=== PATIENT | female | born 1975 | race Caucasian/White ===

== ENCOUNTER 2017-11-23 12:07 | Emergency (ER) | payer OTHER ==
[~2017-11-23] VITALS: Ht 165.1 cm; Wt 97.2 kg
[2017-11-23 12:18] VITALS: TEMP 36.7; Ht 165.1 cm; Wt 97.2 kg
[2017-11-23] MEDS ORDERED: LIDODERM (LIDOCAINE) PATCH 5% TD STA (12:52)
[2017-11-23] MEDS ORDERED: KETOROLAC TROMETHAMINE 60 MG/2 ML VIAL IM STA (13:47)
--- NOTE | 2017-11-23 13:53 | DIAGNOSTIC IMAGING REPORT ---
THORACIC SPINE 3 VIEWS ROUTINE HISTORY: 42 years-old Female back pain acute mid thoracic pain without reported trauma COMPARISON: None available TECHNIQUE: 3 views of the thoracic spine FINDINGS: 12 rib bearing thoracic type vertebral segments are present. Convex left curvature of the upper thoracic spine centered at T4 is noted measuring approximately 14 degrees measured at T2-T6. Mild multilevel spondylitic spurring without acute fracture or subluxation. No significant intervertebral disc space narrowing. Imaged lung mora appear clear. IMPRESSION: 1. No acute fracture or subluxation. 2. 14 degrees levoscoliosis of the upper thoracic spine. The above report was generated using voice recognition software. It may contain grammatical, syntax or spelling errors. Electronically signed by: Obed Diaz M.D. 11/23/2017 1:52 PM Dictated Date/Time: 11/23/2017 1:49 PM
--- NOTE | 2017-11-23 14:10 | EMERGENCY ROOM VISIT NOTE ---
ED Visit Note First contact with patient: 12:34 I have personally seen and evaluated the patient with the physician paperhanger assistant. I agree with the diagnostic/management decisions and have personally been involved in these decisions and agree with the diagnosis.
[2017-11-23] MEDS ORDERED: LIDO1PAD2 TD (14:16)
[2017-11-23] MEDS ORDERED: CYCL5TAB PO (14:16)
--- NOTE | 2017-11-23 14:17 | EMERGENCY ROOM VISIT NOTE ---
ED Visit Note First contact with patient: 12:34 CHIEF COMPLAINT: Back pain HISTORY OF PRESENT ILLNESS: This 42-year-old female patient presents to the emergency department, ambulatory, complaining of pain in the mid to upper back which began yesterday. The patient states she moved yesterday from [place] to [place] with her fidavid. 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 She describes pain near her left shoulder blade, and states it worsens with movement. She describes the pain as sharp and rates it 8/10. Patient states she has been taking one ibuprofen every 8-10 hours without relief in her symptoms. The pain was gradual in onset, is now constant and worse with movement. The patient denies any loss of control of their bowel or bladder functions. There has been no leg or arm numbness or weakness, and no change in sensation. No nausea or vomiting or abdominal pain. No chest pain or shortness of breath. The patient has had prior low back injuries. No dysuria or increased urinary frequency. REVIEW OF SYSTEMS: A 10 system review of systems was performed with positives and pertinent negatives listed in the history of present illness. All other systems were reviewed and are negative. ALLERGIES: Protonix MEDICATIONS: Propranolol, prazosin, Zoloft, lithium, trazodone, "allergy medicine", Lyrica PMH: Migraines, chronic bronchitis, bipolar, depression, chronic back pain SOCIAL HISTORY: Patient lives locally with her arturo. She denies drug, alcohol use. She admits to smoking cigarettes daily. PHYSICAL EXAM: VITALS: Vitals are noted on the nurse's note and reviewed by myself. Vital signs stable. GENERAL: This is a 42-year-old white female, in no acute distress, nondiaphoretic, well-developed well-nourished. SKIN: The skin was without rashes, erythema, edema, or bruising. Capillary refill less than 2 seconds. NECK: Supple without nuchal rigidity. No cervical spine tenderness. No paraspinous muscle tenderness. HEART: Regular rate and rhythm without murmurs gallops or rubs. LUNGS: Clear to auscultation bilaterally without wheezes, rales or rhonchi. ABDOMEN: Positive bowel sounds x 4. Normal tympanic percussion. Soft, nontender, without masses or organomegaly. Magana sign negative. No CVA tenderness. MUSCULOSKELETAL: No muscle atrophy, erythema, or edema noted of the back. There is no tenderness over the lumbar spinous processes, just medial to the scapula. There is no tenderness over the paraspinous muscles bilaterally. There is moderate tenderness over the thoracic spine and right-sided paraspinous muscles. There are muscle spasms present. The patient is slow to move around with maximum tenderness with position changes. Negative bilateral straight leg raise test. NEURO: Patient was alert and oriented to person place and time. Normal sensation to light and sharp touch. Deep tendon reflexes 2+ in the upper and lower extremities. Dorsalis pedis pulse 2+ bilaterally. Strength 5/5 and equal in the bilateral lower extremities. RADIOLOGY: [~ rep ct add3]] THORACIC SPINE 3 VIEWS ROUTINE HISTORY: 42 years-old Female back pain acute mid thoracic pain without reported trauma COMPARISON: None available TECHNIQUE: 3 views of the thoracic spine FINDINGS: 12 rib bearing thoracic type vertebral segments are present. Convex left curvature of the upper thoracic spine centered at T4 is noted measuring approximately 14 degrees measured at T2-T6. Mild multilevel spondylitic spurring without acute fracture or subluxation. No significant intervertebral disc space narrowing. Imaged lung mora appear clear. IMPRESSION: 1. No acute fracture or subluxation. 2. 14 degrees levoscoliosis of the upper thoracic spine. The above report was generated using voice recognition software. It may contain grammatical, syntax or spelling errors. Electronically signed by: Obed Diaz M.D. 11/23/2017 1:52 PM Dictated Date/Time: 11/23/2017 1:49 PM EMERGENCY DEPARTMENT COURSE: The patient was seen and evaluated as above. She was given a Lidoderm patch for pain. X-rays performed reviewed by myself and radiologist as above. The patient complained of ongoing pain despite the Lidoderm patch, so she was given an IM injection of Toradol. The patient was reassessed, and I discussed the findings of the x-ray with the patient and her fianc at bedside. I did consult PDMP and noted multiple prescriptions for Lyrica. The patient states she has been on Lyrica for chronic pain. I offered to provide patient with muscle relaxers and Lidoderm patches, but discussed with her that we would not be starting her on any narcotic pain medication. Patient verbalized agreement and understanding. All questions answered patient and her fianc satisfaction. She was encouraged to follow-up outpatient with her PCP and consider ortho-spine consult. Patient was understandable. Discharge instructions reviewed, patient was discharged home in good condition. I attest that I have personally reviewed the patient's current medication list. Patient was found to have normal blood pressure on screening and does not require follow-up. Etiologies such as lumbago, sciatica, cauda equina, epidural abscess, osteomyelitis, fracture, aortic disease, intra-abdominal pathology, metastatic disease, infection, renal colic, gastrointestinal, as well as others were entertained. DIAGNOSIS: Mid back pain The chart was completed utilizing [email or web address] voice recognition software. Grammatical errors, random word insertions, pronoun errors, and incomplete sentences are an occasional consequence of this system due to software limitations, ambient noise, and hardware issues. Any formal questions or concerns about the content, text, or information contained within the body of this dictation should be directly addressed to the provider for clarification. Current/Historical Medications Scheduled PRN Cyclobenzaprine Hcl (Flexeril), 5 MG PO TID PRN for Moderate Pain Lidocaine (Lidocaine), 1 PATCH TD QD PRN for Pain Vital Signs Date Time Temp Pulse Resp B/P (MAP) Pulse Ox O2 Delivery O2 Flow Rate FiO2 11/23/17 14:25 71 20 128/81 100 11/23/17 12:18 36.7 78 20 117/72 98 Room Air Medications Administered Medications (Trade) Dose Ordered Sig/Perri Route Start Time Stop Time Status Last Admin Dose Admin Lidocaine (Lidoderm Patch 5%) 1 patch NOW STAT TD 11/23/17 12:52 11/23/17 12:53 DC 11/23/17 12:52 1 PATCH Ketorolac Tromethamine (Toradol Inj) 60 mg NOW STAT IM 11/23/17 13:47 11/23/17 13:49 DC 11/23/17 13:47 60 MG Departure Information Impression Primary Impression: Back pain Dispostion Home / Self-Care Condition GOOD Prescriptions Lidocaine (LIDOCAINE) 5 % Pad 1 PATCH TD QD Y for Pain, #30 PATCH Prov: Roya Salguero PA-C 11/23/17 Cyclobenzaprine Hcl (FLEXERIL) 5 Mg Tab 5 MG PO TID Y for Moderate Pain, #15 TAB PRN Prov: Roya Salguero PA-C 11/23/17 Referrals José Manuel Taylor M.D. (PCP) Marquis Veloz, DO Patient Instructions ED Neck Back Pain General, My [facility] Additional Instructions You have been treated in the Emergency Department for Back Pain. You have been prescribed Lidoderm patches. The current patch must be removed within 12 hours. You may not apply a new patch until 12 hours later. No more than 1 patch in 24 hours. You have been prescribed Flexeril (cyclobenzaprine) 1 tabs orally, three times per day. Take your first dose at bedtime as it can make you drowsy. Always take all medications as prescribed. For pain control, you can use the following [id number] medicines (if >12 yo): Ibuprofen(Motrin, Advil) may be used for fever or pain. Use 600mg every six hours as needed. Take with food. Avoid using more than 2400mg in a 24 hour period. Do not use 2400mg per day for more than three consecutive days without physician direction. Prolonged inappropriate use can lead to stomach upset or ulcers. (AND/OR) Acetaminophen(Tylenol) may be used for fever or pain. Use 1000mg every six hours as needed. Avoid using more than 3000mg in a 24 hour period. *Alternate these medications every 3-4 hours for increased pain control. If this is an acute injury, ice can be applied to the area of pain for the first 3 days to help decrease pain and inflammation. After the first 3 days, a heating pad can be used over the area for continued soothing relief. You should schedule a follow-up appointment in 2-3 days with your Primary Care Provider for further evaluation and treatment of your back pain. Return to the Emergency Department if your current symptoms worsen despite treatment course outlined above, or if you develop any of the following symptoms : intractable pain despite aforementioned treatment course, loss of control of your bowel or bladder, numbness or tingling in your groin, or development of a fever. Problem Qualifiers Primary Impression: Back pain Back pain location: thoracic back pain Chronicity: acute Back pain laterality: left Qualified Codes: M54.6 - Pain in thoracic spine
[2017-11-23 14:25] VITALS: BP 128/81; PULSE 71; O2SAT 100
== END 2017-11-23 14:25 | disposition home or self-care (01) ==
LOC: C.EDB 12:09 → C.EDD 14:25
DX: M54.6 Pain in thoracic spine (principal); F31.9 Bipolar disorder, unspecified; Z79.899 Other long term (current) drug therapy; Z88.8 Allergy status to other drugs, medicaments and biological substances; F17.200 Nicotine dependence, unspecified, uncomplicated

== ENCOUNTER 2018-04-10 18:23 | Observation (INO) ==
[2018-04-10] MEDS ORDERED: SODIUM CHLORIDE 0.9% 1000ML 1,000 ML IV SCH (18:45)
--- NOTE | 2018-04-10 18:55 | Emergency Department Note ---
Entered by Dixie Crowe acting as a scribe for History of Present Illness General Chief complaint: Urinary Symptoms Stated complaint: UTI Time Seen by Provider: 04/10/18 18:29 Source: patient History of Present Illness Onset (ago): week(s) 1 Location: left and right (generalized) Pain Consistency: + other (increased) Quality: + other (fatigue) Associated symptoms: + denies other symptoms (diarrhea) and + other (slurred speech, off balance); no cough and no nausea/vomiting The patient is a 42 year old female who presents to the Emergency Room with complaints of increased fatigue that started a week ago. The patient was discharged from the [facility] last week and they changed all of her psych medications. Since the patient has been home, she has had slurred speech, balance issues, cough, and diarrhea. She denies any vomiting. The patient went to [facility] today and she was told she had a UTI and to come to the ED. She reports she is not on any blood thinners. She notes she did not take extra of any of her medications. The patient is a current every day smoker. Home Medications Home Medications Medication Instructions Recorded Confirmed Type clonazepam 0.5 mg PO DAILY PRN 02/10/18 02/27/18 History lithium carbonate 300 mg PO DAILY 02/10/18 02/27/18 History lithium carbonate 600 mg PO HS 02/10/18 02/27/18 History oxcarbazepine 150 mg PO BID 02/10/18 02/27/18 History prazosin 5 mg PO HS 02/10/18 02/27/18 History pregabalin 300 mg PO BID 02/10/18 02/27/18 History propranolol 120 mg PO DAILY 02/10/18 02/27/18 History trazodone 300 mg PO HS 02/10/18 02/27/18 History Allergies Allergy/AdvReac Type Severity Reaction Status Date / Time pantoprazole Allergy Severe Swelling Verified 02/27/18 17:44 of throat lamotrigine AdvReac Mild Rash Unverified 02/27/18 17:44 Past Med/Surg History Medical History AV block Slurred speech Bipolar disorder Migraines Recovering alcoholic Migraine (Inactive) Surgical History H/O lumbosacral spine surgery History of Zack fundoplication Social History Current Living Situation: Significant Other current occupational status: employed 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 and A total of 10 systems reviewed and were otherwise negative Physical Exam Vital Signs Vital Signs - 24 hr 04/10/18 18:25 04/10/18 19:28 04/10/18 19:34 Temperature 36.4 C L Temperature Source Oral Sepsis Recent Fever Within 48 Hours No Sepsis New/Unexplained Change in Mental Status No Sepsis Action Taken by Nursing No Action Required Pulse Rate 76 68 Pulse Rate [Left Finger] 72 Pulse Rhythm Regular Respiratory Rate 16 18 14 Respiratory Effort / Characteristics Non-Labored Spontaneous Blood Pressure 129/79 Blood Pressure [Right Arm] 117/78 Blood Pressure Mean 95 Blood Pressure Mean [Right Arm] 91 Blood Pressure Position Sitting Blood Pressure Position [Right Arm] Sitting Pulse Oximetry 94 97 Oxygen Delivery Method Room Air Room Air GENERAL: Patient is in no acute distress. HEENT: No acute trauma, normocephalic atraumatic, mucous membranes moist, no nasal congestion, no scleral icterus. NECK: No stridor, no adenopathy, no meningismus, trachea is midline. LUNGS: Scattered wheezing, equal breath sounds, no respiratory distress, no rhonchi. HEART: Without murmurs gallops or rubs, regular rate and rhythm. ABDOMEN: Soft, nontender, bowel sounds positive, no hernias, no peritonitis. EXTREMITIES: No cyanosis or edema, full range of motion of all the joints without pain or difficulty, no signs for acute trauma. Boot on left foot and ankle. NEUROLOGIC: Somnolent with some slurred speech but oriented x3. No cerebellar deficits, bilateral subtle upper extremity drift. SKIN: No rash, no jaundice, no diaphoresis. Course 1834: Past medical records reviewed. The patient was evaluated in room A4B, and a complete history and physical examination were performed. 1950: I discussed the patient's case with Dr. Romano, [facility] Hospitalist. She will evaluate the patient for further management and care. 1954: I updated the patient on results and treatment plan at this time. Consultations Consultation #1: I discussed the patient's case with Dr. Romano, [facility] Hospitalist. She will evaluate the patient for further management and care. Time: 19:51 Administered Medications Discontinued Medications Sodium Chloride (Nss 1000ml) 1,000 mls @ 999 mls/hr IV .[id number] MARCY Stop: 04/10/18 19:45 Last Admin: 04/10/18 19:36 Dose: 999 mls/hr Medical Decision Making Differential Diagnosis Differential includes: medication reaction, UTI, dehydration, electrolyte imbalance, anemia, stroke, intracranial bleeding. Medical Records Attestation: I reviewed the patient's medical records. Home Medications Current Medication List: was personally reviewed by me Laboratory Data Attestation: I reviewed the patient's lab results. Result diagrams: 04/10/18 18:55 04/10/18 18:55 Lab Results 04/10/18 04/10/18 04/10/18 Range/Units 18:55 18:55 18:55 WBC 4.17 L (4.8-10.8) K/uL RBC 4.00 L (4.2-5.4) M/uL Hgb 13.0 (12.0-16.0) g/dL Hct 39.1 (37-47) % MCV 97.8 (80-100) fL MCH 32.5 (25-34) pg MCHC 33.2 (32-36) g/dL RDW Std Deviation 43.8 (36.4-46.3) fL RDW Coeff of Georgette 12.3 (11.5-14.5) % Plt Count 148 (130-400) K/uL MPV 10.7 H (7.4-10.4) fL Immature Gran % (Auto) 0.7 % Neut % (Auto) 54.0 % Lymph % (Auto) 19.9 % Gove % (Auto) 20.1 % Eos % (Auto) 4.8 % Baso % (Auto) 0.5 % Immature Gran # (Auto) 0.03 H (0.00-0.02) K/uL Neut # (Auto) 2.25 (1.4-6.5) K/uL Lymph # (Auto) 0.83 L (1.2-3.4) K/uL Gove # (Auto) 0.84 H (0.11-0.59) K/uL Eos # (Auto) 0.20 (0-0.5) K/uL Baso # (Auto) 0.02 (0-0.2) K/uL Sodium 142 (136-145) mmol/L Potassium 3.6 (3.5-5.1) mmol/L Chloride 105 (98-107) mmol/L Carbon Dioxide 34 H (21-32) mmol/L Anion Gap 3.0 (3-11) BUN 9 (7-18) mg/dl Creatinine 0.93 (0.6-1.2) mg/dl Est Cr Clr Drug Dosing 88.5 ml/min Est GFR ( Amer) 86.6 Est GFR (Non-Af Amer) 74.7 BUN/Creatinine Ratio 9.1 L (10-20) Glucose 124 H (70-99) mg/dl Calcium 8.4 L (8.5-10.1) mg/dl Magnesium 2.0 (1.8-2.4) mg/dl Total Bilirubin 0.3 (0.1-1) mg/dl AST 25 (15-37) U/L ALT 38 (12-78) U/L Alkaline Phosphatase 75 (45-117) U/L Troponin I < 0.015 (0-0.045) ng/ml Total Protein 6.8 (6.4-8.2) gm/dl Albumin 3.4 (3.4-5.0) gm/dl Globulin 3.4 (2.5-4.0) gm/dl Albumin/Globulin Ratio 1.0 (0.9-2) TSH 1.200 (0.300-4.500) uIu/ml HCG, Qual (Negative) Urine Color Urine Appearance (Clear) Urine pH (4.5-7.5) Ur Specific Lund (1.000-1.030) Urine Protein (Negative) Urine Glucose (UA) (Negative) Urine Ketones (Negative) Urine Blood (Negative) Urine Nitrite (Negative) Urine Bilirubin (Negative) Urine Urobilinogen (Negative) Ur Leukocyte Esterase (Negative) Urine WBC (Auto) (0-5) /hpf Urine RBC (Auto) (0-4) /hpf U Hyaline Cast (Auto) (0-5) /lpf U Epithel Cells (Auto) (0-5) /lpf Urine Bacteria (Auto) (Negative) Calcium Oxalate Crystal (None Prsent) Urine Opiates Screen (Neg) Ur Methadone, Qual (Neg) Urine Barbiturates (Neg) Valproic Acid 112 H (50-100) mcg/ml Ur Phencyclidine (PCP) (Neg) U Amphetamin/Meth Scrn (Neg) MDMA (Ecstasy) Screen (Neg) U Benzodiazepines Scrn (Neg) Ur Cocaine Metabolite (Neg) U Marijuana (THC) Screen (Neg) Ethyl Alcohol mg/dL (0-3) mg/dl 04/10/18 04/10/18 04/10/18 Range/Units 18:55 18:57 19:10 WBC (4.8-10.8) K/uL RBC (4.2-5.4) M/uL Hgb (12.0-16.0) g/dL Hct (37-47) % MCV (80-100) fL MCH (25-34) pg MCHC (32-36) g/dL RDW Std Deviation (36.4-46.3) fL RDW Coeff of Georgette (11.5-14.5) % Plt Count (130-400) K/uL MPV (7.4-10.4) fL Immature Gran % (Auto) % Neut % (Auto) % Lymph % (Auto) % Gove % (Auto) % Eos % (Auto) % Baso % (Auto) % Immature Gran # (Auto) (0.00-0.02) K/uL Neut # (Auto) (1.4-6.5) K/uL Lymph # (Auto) (1.2-3.4) K/uL Gove # (Auto) (0.11-0.59) K/uL Eos # (Auto) (0-0.5) K/uL Baso # (Auto) (0-0.2) K/uL Sodium (136-145) mmol/L Potassium (3.5-5.1) mmol/L Chloride (98-107) mmol/L Carbon Dioxide (21-32) mmol/L Anion Gap (3-11) BUN (7-18) mg/dl Creatinine (0.6-1.2) mg/dl Est Cr Clr Drug Dosing ml/min Est GFR ( Amer) Est GFR (Non-Af Amer) BUN/Creatinine Ratio (10-20) Glucose (70-99) mg/dl Calcium (8.5-10.1) mg/dl Magnesium (1.8-2.4) mg/dl Total Bilirubin (0.1-1) mg/dl AST (15-37) U/L ALT (12-78) U/L Alkaline Phosphatase (45-117) U/L Troponin I (0-0.045) ng/ml Total Protein (6.4-8.2) gm/dl Albumin (3.4-5.0) gm/dl Globulin (2.5-4.0) gm/dl Albumin/Globulin Ratio (0.9-2) TSH (0.300-4.500) uIu/ml HCG, Qual Negative (Negative) Urine Color Urine Appearance (Clear) Urine pH (4.5-7.5) Ur Specific Lund (1.000-1.030) Urine Protein (Negative) Urine Glucose (UA) (Negative) Urine Ketones (Negative) Urine Blood (Negative) Urine Nitrite (Negative) Urine Bilirubin (Negative) Urine Urobilinogen (Negative) Ur Leukocyte Esterase (Negative) Urine WBC (Auto) (0-5) /hpf Urine RBC (Auto) (0-4) /hpf U Hyaline Cast (Auto) (0-5) /lpf U Epithel Cells (Auto) (0-5) /lpf Urine Bacteria (Auto) (Negative) Calcium Oxalate Crystal (None Prsent) Urine Opiates Screen Neg (Neg) Ur Methadone, Qual Neg (Neg) Urine Barbiturates Neg (Neg) Valproic Acid (50-100) mcg/ml Ur Phencyclidine (PCP) Neg (Neg) U Amphetamin/Meth Scrn Neg (Neg) MDMA (Ecstasy) Screen Pos H (Neg) U Benzodiazepines Scrn Neg (Neg) Ur Cocaine Metabolite Neg (Neg) U Marijuana (THC) Screen Neg (Neg) Ethyl Alcohol mg/dL < 3.0 (0-3) mg/dl 04/10/18 Range/Units 19:10 WBC (4.8-10.8) K/uL RBC (4.2-5.4) M/uL Hgb (12.0-16.0) g/dL Hct (37-47) % MCV (80-100) fL MCH (25-34) pg MCHC (32-36) g/dL RDW Std Deviation (36.4-46.3) fL RDW Coeff of Georgette (11.5-14.5) % Plt Count (130-400) K/uL MPV (7.4-10.4) fL Immature Gran % (Auto) % Neut % (Auto) % Lymph % (Auto) % Gove % (Auto) % Eos % (Auto) % Baso % (Auto) % Immature Gran # (Auto) (0.00-0.02) K/uL Neut # (Auto) (1.4-6.5) K/uL Lymph # (Auto) (1.2-3.4) K/uL Gove # (Auto) (0.11-0.59) K/uL Eos # (Auto) (0-0.5) K/uL Baso # (Auto) (0-0.2) K/uL Sodium (136-145) mmol/L Potassium (3.5-5.1) mmol/L Chloride (98-107) mmol/L Carbon Dioxide (21-32) mmol/L Anion Gap (3-11) BUN (7-18) mg/dl Creatinine (0.6-1.2) mg/dl Est Cr Clr Drug Dosing ml/min Est GFR ( Amer) Est GFR (Non-Af Amer) BUN/Creatinine Ratio (10-20) Glucose (70-99) mg/dl Calcium (8.5-10.1) mg/dl Magnesium (1.8-2.4) mg/dl Total Bilirubin (0.1-1) mg/dl AST (15-37) U/L ALT (12-78) U/L Alkaline Phosphatase (45-117) U/L Troponin I (0-0.045) ng/ml Total Protein (6.4-8.2) gm/dl Albumin (3.4-5.0) gm/dl Globulin (2.5-4.0) gm/dl Albumin/Globulin Ratio (0.9-2) TSH (0.300-4.500) uIu/ml HCG, Qual (Negative) Urine Color Dark Yellow Urine Appearance Clear (Clear) Urine pH 6.0 (4.5-7.5) Ur Specific Lund 1.037 H (1.000-1.030) Urine Protein Trace H (Negative) Urine Glucose (UA) Negative (Negative) Urine Ketones 1+ H (Negative) Urine Blood Negative (Negative) Urine Nitrite Negative (Negative) Urine Bilirubin Negative (Negative) Urine Urobilinogen Negative (Negative) Ur Leukocyte Esterase Negative (Negative) Urine WBC (Auto) 5-10 H (0-5) /hpf Urine RBC (Auto) 5-10 H (0-4) /hpf U Hyaline Cast (Auto) 10-30 H (0-5) /lpf U Epithel Cells (Auto) >30 H (0-5) /lpf Urine Bacteria (Auto) Negative (Negative) Calcium Oxalate Crystal Present H (None Prsent) Urine Opiates Screen (Neg) Ur Methadone, Qual (Neg) Urine Barbiturates (Neg) Valproic Acid (50-100) mcg/ml Ur Phencyclidine (PCP) (Neg) U Amphetamin/Meth Scrn (Neg) MDMA (Ecstasy) Screen (Neg) U Benzodiazepines Scrn (Neg) Ur Cocaine Metabolite (Neg) U Marijuana (THC) Screen (Neg) Ethyl Alcohol mg/dL (0-3) mg/dl Imaging Data Radiologist's Impression: Radiology results as stated below per my review and the radiologist's interpretation: SINGLE VIEW CHEST CLINICAL HISTORY: Generalized weakness. FINDINGS: An AP, portable, upright chest radiograph is compared to study dated . The examination is degraded by portable technique and patient rotation. The cardiomediastinal silhouette is unremarkable. There is mild bibasilar atelectasis. The lungs and pleural spaces are otherwise clear. No pneumothorax is seen. The bony thorax is grossly intact. IMPRESSION: No active disease in the chest. Electronically signed by: Marc Knutson M.D. 04/10/2018 6:[address] SCAN OF THE BRAIN WITHOUT IV CONTRAST CLINICAL HISTORY: Change in mental status. COMPARISON STUDY: CT of the brain dated 02/10/2018. TECHNIQUE: Unenhanced axial CT scan of the brain is performed from the vertex to the skull base. A dose lowering technique was utilized adhering to the principles of ALARA. The Examination is degraded by streak artifact from metallic hardware. CT DOSE: 1003.44 mGycm FINDINGS: Brain parenchyma: The brain parenchyma is normal in appearance. There is no hemorrhage, mass effect, or evidence of acute territorial ischemia by CT criteria. Khan-white matter differentiation is preserved. No extra-axial fluid collection is seen. Ventricles, sulci, cisterns: Normal in configuration. Intracranial vasculature: The visualized intracranial vasculature at the skull base is normal in appearance. Calvarium: A metallic structure is seen along the right parietal convexity. The calvarium appears intact. Sinuses and mastoids: The visualized paranasal sinuses are clear. The mastoid air cells are well pneumatized. Orbits: The bony orbits are grossly intact. IMPRESSION: No acute intracranial abnormality. Electronically signed by: Marc Knutson M.D. 04/10/2018 7:22 PM ECG Data Attestation: I personally reviewed and interpreted this ECG as follows: Indication: weakness Rate (beats per minute): 70 Rhythm: normal sinus Findings: + other (diffuse non-specific ST change); no ST elevation Comparison ECG Date: from (02/10/18) Change: no significant change Blood Pressure Blood Pressure Findings: Normal blood pressure MDM Narrative There is no leukocytosis or concerning anemia. No significant electrolyte abnormality, kidney failure or hepatitis. The patient appears to be in a euthyroid state. EKG shows a sinus rhythm with some nonspecific change, no acute ischemia. Cardiac enzyme testing x1 is not consistent with acute cardiac injury. testing is negative. Urinalysis shows contamination, no obvious infection. Urine tox shows ecstasy versus contamination from her typical psychiatric meds. Alcohol level was undetectable. Valproic acid level was high at 112. Chest x-ray did not show mediastinal widening, pneumonia or CHF. Brain CT showed no acute bleed or mass-effect. On exam, the patient was not febrile or toxic. There were no focal neurologic deficits. She was somnolent though and had some slurred speech. The patient received IV saline for hydration. She is resting comfortably. I think the patient is overmedicated. I think this explains her change in mental status. She is valproic acid toxic by our testing. A hospital stay is warranted. I did speak to the patient and case management. The on-call hospitalist was consulted. Impression & Plan Change in mental status, Somnolence, Medication reaction, Valproic acid toxicity Discharge Plan Visit Data Chief Complaint: Urinary Symptoms Stated Complaint: UTI ED Provider: Feese,Marc J Discharge Problem: Change in mental status, Somnolence, Medication reaction, Valproic acid toxicity Patient Disposition: Being Evaluated by Hospitalist Forms Stand Alone Forms: My [facility] Prescriptions Prescriptions: No Action oxcarbazepine 150 mg tablet 150 mg PO BID RF: 0 clonazepam 0.5 mg tablet 0.5 mg PO DAILY PRN (Reason: Anxiety) RF: 0 prazosin 5 mg capsule 5 mg PO HS RF: 0 lithium carbonate 600 mg capsule 600 mg PO HS RF: 0 lithium carbonate 300 mg capsule 300 mg PO DAILY RF: 0 trazodone 300 mg tablet 300 mg PO HS RF: 0 propranolol 120 mg Capsule,Extended Release 24 Hr 120 mg PO DAILY RF: 0 pregabalin 300 mg capsule 300 mg PO BID RF: 0 Referrals Referrals: Raul Pham MD [Primary Care Provider] - The tariqibe's documentation has been prepared under my direction and personally reviewed by me in its entirety. I confirm that the note above accurately reflects all work, treatment, procedures, and medical decision making performed by me.
--- NOTE | 2018-04-10 18:57 | XRay Report ---
SINGLE VIEW CHEST CLINICAL HISTORY: Generalized weakness. FINDINGS: An AP, portable, upright chest radiograph is compared to study dated 12/22/2017. The examina tion is degraded by portable technique and patient rotation. The cardiomediastinal silhouette is unr emarkable. There is mild bibasilar atelectasis. The lungs and pleural spaces are otherwise clear. No pneumothorax is seen. The bony thorax is grossly intact. IMPRESSION: No active disease in the chest. Electronically signed by: Marc Knutson M.D. 04/10/2018 6:55 PM
[2018-04-10 19:16] LABS: Basophils # (auto) 0.02 K/uL (0-0.2); Basophils % (auto) 0.5 %; Eosinophils % (auto) 4.8 %; Hematocrit (blood only) 39.1 % (37-47); Immature Granulocytes # (auto) 0.03 K/uL (0.00-0.02); Immature Granulocytes % (auto) 0.7 %; Lymphocytes # (auto) 0.83 K/uL (1.2-3.4); Lymphocytes % (auto) 19.9 %; Mean Corpuscular Hgb Conc 33.2 g/dL (32-36); Mean Corpuscular Volume 97.8 fL (80-100); Mean Platelet Volume 10.7 fL (7.4-10.4); Monocytes # (auto) 0.84 K/uL (0.11-0.59); Monocytes % (auto) 20.1 %; Neutrophils # (auto) 2.25 K/uL (1.4-6.5); Platelet Count 148 K/uL (130-400); RDW Coefficient of Variation 12.3 % (11.5-14.5); RDW Standard Deviation 43.8 fL (36.4-46.3); White Blood Count 4.17 K/uL (4.8-10.8)
--- NOTE | 2018-04-10 19:25 | CT Scan Report ---
CT SCAN OF THE BRAIN WITHOUT IV CONTRAST CLINICAL HISTORY: Change in mental status. COMPARISON STUDY: CT of the brain dated 02/10/2018. TECHNIQUE: Unenhanced axial CT scan of the brain is performed from the vertex to the skull base. A d ose lowering technique was utilized adhering to the principles of ALARA. The Examination is degraded by streak artifact from metallic hardware. CT DOSE: 1003.44 mGycm FINDINGS: Brain parenchyma: The brain parenchyma is normal in appearance. There is no hemorrhage, mass effect, or evidence of acute territorial ischemia by CT criteria. Khan-white matter differentiation is preser dulce. No extra-axial fluid collection is seen. Ventricles, sulci, cisterns: Normal in configuration. Intracranial vasculature: The visualized intracranial vasculature at the skull base is normal in appe arance. Calvarium: A metallic structure is seen along the right parietal convexity. The calvarium appears int act. Sinuses and mastoids: The visualized paranasal sinuses are clear. The mastoid air cells are well pneu matized. Orbits: The bony orbits are grossly intact. IMPRESSION: No acute intracranial abnormality. Electronically signed by: Marc Knutson M.D. 04/10/2018 7:22 PM
[2018-04-10 19:30] LABS: Appearance Urine Clear (Clear); Bacteria Urine Automated Negative (Negative); Color Urine Dark Yellow; Epithelial Cell Urine Auto >30 /lpf (0-5); Glucose Urine UA Negative (Negative); Ketones Urine 1+ (Negative); Leukocyte Esterase Urine Negative (Negative); Nitrite Urine Negative (Negative); Protein Urine Trace (Negative); Specific Gravity Urine 1.037 (1.000-1.030); Urobilinogen Urine Negative (Negative)
[2018-04-10 19:35] LABS: Alanine Aminotransferase 38 U/L (12-78); Albumin Level 3.4 gm/dl (3.4-5.0); Aspartate Aminotransferase 25 U/L (15-37); BUN Creatinine Ratio 9.1 (10-20); Blood Urea Nitrogen 9 mg/dl (7-18); Calcium 8.4 mg/dl (8.5-10.1); Carbon Dioxide 34 mmol/L (21-32); Chloride 105 mmol/L (98-107); Creatinine Clr Calc Pharmacy 88.5 ml/min; Est GFR (African American) 86.6; Est GFR (Non-African American) 74.7; Glucose 124 mg/dl (70-99); Potassium 3.6 mmol/L (3.5-5.1); Sodium 142 mmol/L (136-145)
[2018-04-10 19:45] LABS: Bilirubin Urine Negative (Negative); Ictotest Urine Negative (Negative)
[2018-04-10 19:46] LABS: Alkaline Phosphatase 75 U/L (45-117); Bilirubin,Total 0.3 mg/dl (0.1-1); Globulin 3.4 gm/dl (2.5-4.0); Total Protein 6.8 gm/dl (6.4-8.2); Troponin I < 0.015 ng/ml (0-0.045)
[2018-04-10 19:47] LABS: Calcium Oxalate Crystals Urine Present (None Prsent)
[2018-04-10 19:48] LABS: Pregnancy Test, Serum Negative (Negative)
[2018-04-10 20:01] LABS: Amphetamines+Metham, Urine Neg (Neg); Barbiturates, Urine Neg (Neg); Benzodiazepine, Urine Neg (Neg); Cocaine, Urine Neg (Neg); MDMA (Ecstacy), Urine Pos (Neg); Methadone, Urine Neg (Neg); Opiate, Urine Neg (Neg); Phencyclidine, Urine Neg (Neg)
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
[2018-04-10] MEDS ORDERED: guaiFENesin 600 MG TABCR PO PRN (22:39)
[2018-04-10] MEDS ORDERED: LORazepam 0.5 MG TAB PO PRN (22:39)
[2018-04-10] MEDS ORDERED: ACETAMINOPHEN 325 MG TAB PO PRN (22:39)
[2018-04-10] MEDS ORDERED: ALBUT/IPRATROP 3MG/0.5MG NEB 3 ML VIAL NEB PRN (22:39)
[2018-04-10 23:13] LABS: Prothrombin Time 10.1 Seconds (9.0-12.0)
[2018-04-11] MEDS: DULOXETINE HCL 30 MG CAP PO SCH ×3 (01:01→21:16)
[2018-04-11] MEDS: SODIUM CHLORIDE 0.9% 1000ML 1,000 ML IV SCH ×2 (01:02→08:46)
[2018-04-11] MEDS: ENOXAPARIN INJ 40 MG/0.4 ML SYR SQ SCH ×2 (01:03→21:16)
[2018-04-11 06:59] LABS: Basophils # (auto) 0.03 K/uL (0-0.2); Basophils % (auto) 0.6 %; Eosinophils # (auto) 0.21 K/uL (0-0.5); Hematocrit (blood only) 37.2 % (37-47); Hemoglobin 12.5 g/dL (12.0-16.0); Immature Granulocytes # (auto) 0.05 K/uL (0.00-0.02); Immature Granulocytes % (auto) 0.9 %; Lymphocytes # (auto) 1.41 K/uL (1.2-3.4); Lymphocytes % (auto) 26.7 %; Mean Corpuscular Hgb Conc 33.6 g/dL (32-36); Mean Corpuscular Volume 96.1 fL (80-100); Mean Platelet Volume 10.2 fL (7.4-10.4); Monocytes # (auto) 0.97 K/uL (0.11-0.59); Monocytes % (auto) 18.3 %; Neutrophils # (auto) 2.62 K/uL (1.4-6.5); Neutrophils % (auto) 49.5 %; Platelet Count 138 K/uL (130-400); RDW Coefficient of Variation 12.1 % (11.5-14.5); RDW Standard Deviation 42.4 fL (36.4-46.3); Red Blood Count 3.87 M/uL (4.2-5.4); White Blood Count 5.29 K/uL (4.8-10.8)
--- NOTE | 2018-04-11 07:08 | Family Medicine Progress Note ---
Date of Service April 11, 2018 Assessment & Plan (1) Change in mental status: # Change in mental status 2/2 Likely Valproic Acid Level Ms. Howard is a 42-year-old female with a history of bipolar disorder, depression, migraines who presented to [facility] emergency department with a 6 day history of altered mental status. Found to have elevated depakote level in ED. Received 1L NS bolus in ED. CT Head negative. UA is likely a contaminate. - Depakote level downtrending from 125-->74 (normal) and mental status improving. - Continue to hold valproic acid, prazosin, trazodone and Lyrica. Appreciate Psych management for medications. #Cough: -pt w/dry cough & slight wheezing on exam -duonebs prn -mucinex prn -if symptoms worsen, consider repeat CXR as pt is at risk for aspiration pneumonitis #Diarrhea (improving) -Could be related to valproic acid toxicity -Consider testing for C. difficile if her diarrhea worsens #Abnormal UA - Repeat done last evening - with few WBC. check urine culture and follow. #Tobacco abuse: -Nicotine patch ordered -Smoking cessation education #Bipolar disorder: -Hold home Depakote given elevated Depakote level -Psych consult to assist with management #Migraines: -Continue home propanolol #Recovering alcoholic: -Last drink was over 1 year ago -Negative alcohol level on testing #Anxiety: -Continue home Lorazepam as needed #Depression: -Continue home Cymbalta twice daily #Nightmare: -Hold home prazosin given sedating properties # DVT prophylaxis: -Lovenox 40 units subcutaneous daily FEN - Holding IVF because pt tolerating good PO. - K+ 3.3, given 20meq KCL PO, will recheck in AM. - Regular diet. (2) Valproic acid toxicity: (3) Tobacco abuse: (4) Bipolar disorder: (5) Migraines: (6) Recovering alcoholic: (7) Anxiety: (8) Depression: (9) Nightmare: (10) Cough: (11) Diarrhea: (12) DVT prophylaxis: Supervising Physician Co-Signing Physician Notes Resident Physician Supervision Note: I independently interviewed and examined the patient and verified the valdez history and physical, reviewed labs and image studies, discussed the case with the resident Dr. Bojorquez and agree with the findings and care plan. Subjective Pt was seen and examined at bedside. Elsa present in the room. Pt is able to provide a history for me on her own. She states that she is much improved from her admission - boyfriend confirms this. Pt states that she was recently discharged from the [facility] around 1 week ago on Cymbalta and Depakote 1500mg daily. She states that she feels her meds have made her drowsy- it was a constant decline since her visit. She states her double vision has improved. Her Speech is better. Her thinking is back to normal. Pt states she is almost quite back to normal. Just feels fatigued. Constitutional: + fatigue; no fever and no chills Eyes: no diplopia, no discharge, no eye pain and no tunnel vision Ear, Nose, Mouth, Throat: no dizziness Respiratory: + cough; no dyspnea, no dyspnea on exertion, no hemoptysis and no pain with cough Cardiovascular: no chest pain, no dyspnea, no palpitations, no lightheadedness, no syncope and no calf pain Gastrointestinal: no abdominal pain, no nausea, no vomiting and no blood in stools Neurologic: + unsteadiness; no seizure-like activity and no behavioral changes Psychiatric: no behavioral changes, no depression, no suicidal ideation, no homicidal ideation and no substance abuse Physical Exam 2 Vital Signs (Past 24 Hours): Last Vital Signs Temp 36.7 C 04/11/18 05:08 Pulse 65 04/11/18 05:08 Resp 18 04/11/18 05:08 BP 129/84 04/11/18 05:08 Pulse Ox 94 04/11/18 05:08 Constitutional: well developed, well nourished and cooperative Eyes: PERRL and EOM intact bilaterally ENMT: external ear and nose normal, oropharynx normal Respiratory: normal respiratory effort, + cough and able to speak in complete sentences; no respiratory distress, no labored breathing and does not use accessory muscles Auscultation: + wheezes Cardiovascular: RRR, no murmur, no edema Gastrointestinal (Abdomen): normal bowel sounds, soft, nontender, no hepatosplenomegaly Skin: no rashes, warm and dry Neurologic: CN's II-XI intact bilaterally and awake; not confused Speech / Cognition: + abnormal speech (slow to respond, slurred speech) Motor/Sensory : no tremor and normal movement Coordination: normal [id number] test Psychiatric: Orientation: alert and oriented x 3 Suicidal Thoughts: denies suicidal thoughts, denies suicidal plan and denies suicidal intent Insight: good insight _ (1) Bipolar disorder Active/Remission status: remission status unspecified Current bipolar episode type: Current episode severity: Most recent bipolar episode type: Psychotic features: Qualified Code(s): F31.9 - Bipolar disorder, unspecified (2) Migraines Intractability: not intractable Migraine type: unspecified Status migrainosus presence: without status migrainosus Qualified Code(s): G43.909 - Migraine, unspecified, not intractable, without status migrainosus (3) Change in mental status Altered mental status type: unspecified Coma depth: Coma timing: Qualified Code(s): R41.82 - Altered mental status, unspecified (4) Valproic acid toxicity Encounter type: initial encounter Injury intent: accidental or unintentional Qualified Code(s): T42.6X1A - Poisoning by other antiepileptic and sedative- hypnotic drugs, accidental (unintentional), initial encounter
[2018-04-11 07:25] LABS: Albumin Level 2.9 gm/dl (3.4-5.0); BUN Creatinine Ratio 13.5 (10-20); Calcium 7.6 mg/dl (8.5-10.1); Creatinine Clr Calc Pharmacy 126.6 ml/min; Est GFR (African American) 125.1; Potassium 3.3 mmol/L (3.5-5.1)
[2018-04-11 07:28] LABS: Bilirubin,Total 0.4 mg/dl (0.1-1); Globulin 2.8 gm/dl (2.5-4.0); Total Protein 5.7 gm/dl (6.4-8.2)
[2018-04-11] MEDS: CALCIUM CARBONATE 1250MG TAB PO SCH (08:44)
[2018-04-11] MEDS: PROPRANOLOL HCL 60 MG LA CAP PO SCH (08:45)
[2018-04-11] MEDS: NICOTINE 21 MG/24 HR TDSY TD SCH (08:45)
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
[2018-04-11] MEDS ORDERED: POTASSIUM CHLORIDE 20 MEQ TABCR PO STA (13:07)
[2018-04-11] MEDS ORDERED: DIVALPROEX EXTENDED RELEASE 500 MG TAB PO SCH (21:00)
[2018-04-12] MEDS: PROPRANOLOL HCL 60 MG LA CAP PO SCH (08:18)
[2018-04-12] MEDS: DULOXETINE HCL 30 MG CAP PO SCH (08:18)
[2018-04-12] MEDS: NICOTINE 21 MG/24 HR TDSY TD SCH (08:18)
[2018-04-12] MEDS: CALCIUM CARBONATE 1250MG TAB PO SCH (08:18)
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
[2018-04-16 10:04] LABS: MDA negative; MDEA negative; MDMA (Ecstasy) Urine, Confirm negative
== END 2018-04-12 12:04 | disposition home or self-care (01) ==
LOC: 2W 18:23 → ED 18:23 → SUATTDRO 21:55 → 2W 22:26

== ENCOUNTER 2018-11-01 22:59 | Inpatient (IN) ==
[2018-11-01] MEDS ORDERED: ONDANSETRON INJ 2 MG/ML 2 ML VIAL IV STA (23:33)
[2018-11-01] MEDS ORDERED: SODIUM CHLORIDE 0.9% 1000ML 1,000 ML IV SCH (23:45)
[2018-11-02] MEDS: HYDROmorphone INJ 1 MG/ML SYRINGE IV PRN ×6 (00:32→11:09)
[2018-11-02 00:42] LABS: Basophils # (auto) 0.03 K/uL (0-0.2); Basophils % (auto) 0.4 %; Eosinophils # (auto) 0.26 K/uL (0-0.5); Eosinophils % (auto) 3.1 %; Hematocrit (blood only) 41.8 % (37-47); Hemoglobin 14.3 g/dL (12.0-16.0); Immature Granulocytes # (auto) 0.03 K/uL (0.00-0.02); Immature Granulocytes % (auto) 0.4 %; Lymphocytes % (auto) 20.4 %; Mean Corpuscular Hgb Conc 34.2 g/dL (32-36); Mean Corpuscular Volume 93.3 fL (80-100); Mean Platelet Volume 10.9 fL (7.4-10.4); Monocytes # (auto) 0.73 K/uL (0.11-0.59); Monocytes % (auto) 8.8 %; Neutrophils # (auto) 5.57 K/uL (1.4-6.5); Neutrophils % (auto) 66.9 %; Platelet Count 236 K/uL (130-400); RDW Coefficient of Variation 12.9 % (11.5-14.5); RDW Standard Deviation 43.7 fL (36.4-46.3); Red Blood Count 4.48 M/uL (4.2-5.4); White Blood Count 8.32 K/uL (4.8-10.8)
[2018-11-02 00:59] LABS: Alanine Aminotransferase 39 U/L (12-78); Albumin Level 3.8 gm/dl (3.4-5.0); Aspartate Aminotransferase 19 U/L (15-37); BUN Creatinine Ratio 14.1 (10-20); Blood Urea Nitrogen 11 mg/dl (7-18); Calcium 11.1 mg/dl (8.5-10.1); Carbon Dioxide 31 mmol/L (21-32); Chloride 99 mmol/L (98-107); Est GFR (African American) 108.8; Est GFR (Non-African American) 93.9; Glucose 170 mg/dl (70-99); Potassium 3.9 mmol/L (3.5-5.1); Sodium 137 mmol/L (136-145)
[2018-11-02 01:04] LABS: Alkaline Phosphatase 134 U/L (45-117); Bilirubin,Total 0.4 mg/dl (0.2-1); Creatine Kinase 60 U/L (26-192); Creatine Kinase MB < 1.0 ng/ml (0.5-3.6); Globulin 3.7 gm/dl (2.5-4.0); Total Protein 7.5 gm/dl (6.4-8.2); Troponin I < 0.015 ng/ml (0-0.045)
[2018-11-02] MEDS ORDERED: cefOXitin 2,000 MG/60 ML BAG IV STA (01:44)
--- NOTE | 2018-11-02 02:08 | Surgery Consultation ---
Date of Consultation November 02, 2018 Assessment & Plan (1) Acute calculous cholecystitis: 42-year-old female with acute calculus cholecystitis Admit to medicine N.p.o. Plan for laparoscopic cholecystectomy possible cholangiogram later today There is the procedure were discussed to include but not limited to bleeding, infection, retained stone, bile leak, damage surrounding structures including common bile duct, need for future more extensive surgery, conversion open, and the risk of anesthesia Plan of care discussed the patient, all questions were answered, the patient expressed understanding agrees the plan of care as stated Present on Admission?: Yes (2) Bipolar disorder: (3) Recovering alcoholic: History of Present Illness History of Present Illness 42-year-old female presented to the emergency department with abdominal pain starting this morning. She ate eggs for breakfast and developed epigastric and right upper quadrant abdominal pain. She had some nausea. No similar episodes in the past. Denies any jaundice or acholic stool. She has a history of a Zack fundoplication in the past. Allergies Allergy/AdvReac Type Severity Reaction Status Date / Time pantoprazole Allergy Severe Swelling Verified 11/01/18 23:24 of throat lamotrigine AdvReac Mild Rash Verified 11/01/18 23:24 Home Medications Home Medications Medication Instructions Recorded Confirmed Type prazosin 5 mg PO HS 02/10/18 11/01/18 History calcium carbonate [Calcium 500] 1,000 mg PO QAM 04/10/18 11/01/18 History duloxetine [Cymbalta] 30 mg PO BID 04/10/18 11/01/18 History divalproex 1,250 mg PO HS 07/27/18 11/01/18 History acetaminophen [Tylenol Extra 500 mg PO Q6H PRN 10/05/18 11/01/18 History Strength] amitriptyline 25 mg PO HS 10/05/18 11/01/18 History amoxicillin-pot clavulanate 1 tab PO Q12H 10/05/18 11/01/18 History [Augmentin] ferrous sulfate 325 mg PO QAM 10/05/18 11/01/18 History propranolol 120 mg PO QAM 10/05/18 11/01/18 History meclizine 25 mg PO TID PRN #20 tab 10/19/18 11/01/18 Rx ondansetron 4 mg PO Q6H PRN #10 tab 10/19/18 11/01/18 Rx Patient History Medical History AV block Slurred speech Bipolar disorder Migraines Recovering alcoholic Migraine (Inactive) Surgical History H/O lumbosacral spine surgery History of Zack fundoplication Family History Mother Brain tumor Hypertension Breast cancer Father Depression with anxiety Prostate cancer Other No significant family history Social History Preferred Language: [place] Zealander Communication Ability: Impaired Beliefs That Will Affect Care: Restoration Restoration Beliefs: Anabaptist Current Living Situation: Significant Other current occupational status: employed 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, [employer]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 Safe at Home: Yes Smoking Status: Current every day smoker Tobacco Type: cigarettes Cigarettes Per Day: 5 Second Hand Exposure: Yes Hx Alcohol Use: No Hx Substance Use: No Review of Systems Review of Systems: All systems reviewed & are unremarkable except as noted in HPI & below Physical Exam Constitutional: WD/WN, vitals as above + obese Eyes: PERRL, conjunctivae normal, anicteric sclerae ENMT: external ear and nose normal, oropharynx normal Neck: trachea midline, no thyromegaly Respiratory: normal respiratory effort, lungs clear to auscultation Cardiovascular: RRR, no murmur, no edema Gastrointestinal (Abdomen): Inspection/Auscultation: abdomen not distended Percussion/Palpation: + abdomen tender (Tenderness to palpation in the right upper quadrant, positive Magana sign) and abdomen soft; no guarding Musculoskeletal: no cyanosis or clubbing, extremities motor strength 5/5 Skin: no rashes, warm and dry Neurologic: PERRL, EOMI, accommodation nl, no face palsy, no dysarthria Psychiatric: A+Ox3, euthymic affect Lymphatic: no cervical or axillary lymphadenopathy Results & Data Vital Signs (Past 12 Hours) Vital Signs Temp Pulse Pulse Resp BP BP Pulse Ox 11/02/18 00:36 91 H 18 145/100 H 98 11/01/18 23:09 36.9 C 106 H 19 146/88 H 97 Laboratory Results Laboratory Results - last 24 hr 11/02/18 11/02/18 00:25 00:25 WBC 8.32 RBC 4.48 Hgb 14.3 Hct 41.8 MCV 93.3 MCH 31.9 MCHC 34.2 RDW Std Deviation 43.7 RDW Coeff of Georgette 12.9 Plt Count 236 MPV 10.9 H Immature Gran % (Auto) 0.4 Neut % (Auto) 66.9 Lymph % (Auto) 20.4 [place] % (Auto) 8.8 Eos % (Auto) 3.1 Baso % (Auto) 0.4 Immature Gran # (Auto) 0.03 H Neut # (Auto) 5.57 Lymph # (Auto) 1.70 [place] # (Auto) 0.73 H Eos # (Auto) 0.26 Baso # (Auto) 0.03 Sodium 137 Potassium 3.9 Chloride 99 Carbon Dioxide 31 Anion Gap 7.0 BUN 11 Creatinine 0.77 Est Cr Clr Drug Dosing Not Reportable Est GFR ( Amer) 108.8 Est GFR (Non-Af Amer) 93.9 BUN/Creatinine Ratio 14.1 Glucose 170 H Calcium 11.1 H Total Bilirubin 0.4 AST 19 ALT 39 Alkaline Phosphatase 134 H Total Creatine Kinase 60 CK-MB (CK-2) < 1.0 CK/CKMB % Calc TNP Troponin I < 0.015 Total Protein 7.5 Albumin 3.8 Globulin 3.7 Albumin/Globulin Ratio 1.0 Lipase 211 Diagnostic Findings Right upper quadrant ultrasound shows gallstones with normal gallbladder wall and no pericholecystic fluid with positive sonographic Magana sign (1) Bipolar disorder Active/Remission status: remission status unspecified Qualified Code(s): F31.9 - Bipolar disorder, unspecified
[2018-11-02] MEDS ORDERED: IOVERSOL 100ml IV PRN (02:25)
--- NOTE | 2018-11-02 02:48 | History & Physical Report ---
Date of Service November 02, 2018 Assessment & Plan (1) Acute calculous cholecystitis: Admit to medical surgical floor. Zosyn 3.375 mg IV every 8 hours. NPO Except essential medications. Zofran 4 mg IV every 6 hours as needed. Acetaminophen 1 g IV every 8 hours PRN mild pain or temperature. Morphine sulfate 4 mg IV every 3 hours as needed severe pain. NSS + KCl 20 mEq at 100 mils per hour NM HIDA scan EF. Consult general surgery Dr. Mancera. Present on Admission?: Yes (2) Bipolar disorder: Bipolar disorder/anxiety/depression/migraines- Continue divalproex extended release 1250 mg p.o. at bedtime, duloxetine 30 mg p.o. twice daily, Inderal LA 120 mg every morning, and prazosin 5 mg p.o. at bedtime. Present on Admission?: Yes (3) Migraines: See above Present on Admission?: Yes (4) Hypercalcemia: Calcium level was 11.1 upon admission. Repeat after hydration in the a.m. Check vitamin D and parathyroid hormone levels Present on Admission?: Yes (5) Hyperglycemia: Check a hemoglobin A1c Present on Admission?: Yes (6) GERD (gastroesophageal reflux disease): GERD/history of Zack fundoplication- Placed on famotidine 20 mg IV every 12 hours. Present on Admission?: Yes (7) History of Zack fundoplication: See above Present on Admission?: Yes (8) Tobacco abuse: If required, NicoDerm patch. Albuterol-nebulizer every 2 hours as needed. Present on Admission?: Yes (9) Anxiety: See above Present on Admission?: Yes (10) Depression: See above Present on Admission?: Yes History of Present Illness Chief Complaint: The patient presents to the emergency department with a complaint of acute onset of severe right upper quadrant pain, under her right breast, accompanied by nausea without vomiting, that began upon awakening this morning, and has persisted throughout the day. Primary Care Provider: Taiwo Pham MD The patient is a 42-year-old female with a past medical history including anxiety with depression, Zack fundoplication, tobacco abuse, bipolar disorder, and migraines, who presents to the emergency department with acute onset of severe right upper quadrant abdominal pain that has persisted throughout the day. She has not had this pain in the past. It is accompanied by nausea without vomiting. She has not had any questionable food intake. She underwent imaging studies in the emergency department with ultrasound the right upper quadrant showing fatty liver, and suggesting acute cholecystitis, with suggestion of HIDA scan if necessary for confirmation. She reports that her mother did require a cholecystectomy. Patient was seen by Dr. Mancera from general surgery in the emergency department, who has tentative plans for laparoscopic cholecystectomy with possible cholangiogram later on in the day. Allergies Allergy/AdvReac Type Severity Reaction Status Date / Time pantoprazole Allergy Severe Swelling Verified 11/01/18 23:24 of throat lamotrigine AdvReac Mild Rash Verified 11/01/18 23:24 Home Medications Home Medications Medication Instructions Recorded Confirmed Type prazosin 5 mg PO HS 02/10/18 11/01/18 History calcium carbonate [Calcium 500] 1,000 mg PO QAM 04/10/18 11/01/18 History duloxetine [Cymbalta] 30 mg PO BID 04/10/18 11/01/18 History divalproex 1,250 mg PO HS 07/27/18 11/01/18 History acetaminophen [Tylenol Extra 500 mg PO Q6H PRN 10/05/18 11/01/18 History Strength] amitriptyline 25 mg PO HS 10/05/18 11/01/18 History amoxicillin-pot clavulanate 1 tab PO Q12H 10/05/18 11/01/18 History [Augmentin] ferrous sulfate 325 mg PO QAM 10/05/18 11/01/18 History propranolol 120 mg PO QAM 10/05/18 11/01/18 History meclizine 25 mg PO TID PRN #20 tab 10/19/18 11/01/18 Rx ondansetron 4 mg PO Q6H PRN #10 tab 10/19/18 11/01/18 Rx Past Med/Surg History Medical History AV block Slurred speech Bipolar disorder Migraines Recovering alcoholic Migraine (Inactive) Surgical History H/O lumbosacral spine surgery History of Zack fundoplication Family History Mother Brain tumor Hypertension Breast cancer Father Depression with anxiety Prostate cancer Other No significant family history Social History Preferred Language: Latvian Communication Ability: Effective Payroll Examiner Required: No Beliefs That Will Affect Care: None Current Living Situation: Spouse current occupational status: employed 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, [employer]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 Other Information That Helps Us Care for You: Yes (had a fundoplication) Feels Safe at Home: Yes Smoking Status: Current every day smoker Tobacco Type: cigarettes Cigarettes Per Day: 5 Do You Dip or Chew Tobacco: No Second Hand Exposure: No Tobacco Cessation Education Requested by Patient: No Hx Alcohol Use: No Hx Substance Use: No Review of Systems Review of Systems: The patient denies chest pain, palpitations, shortness of breath, dyspnea on exertion, cough, lower extremity swelling, sore throat, fevers, chills, sweats, diarrhea , constipation, blood in urine or stool, dysuria, urinary frequency or urgency, lightheadedness, dizziness, headache, memory loss, loss of consciousness, rash, abnormal bruising or bleeding, imbalance, focal or generalized weakness, numbness or tingling in arms or legs, generalized arthralgias or myalgias, back or neck pain, or night sweats. The review of systems is otherwise negative other than for that already noted above, and at least 10 systems have been reviewed. Physical Exam Physical Exam: The patient is awake, alert and oriented 3, well developed and well nourished, normocephalic and atraumatic, lying in bed and in no acute distress. HEENT--PERRL, EOMI, mucous membranes and oropharynx mildly dry. Neck--supple. No JVD. No bruits. Thyroid normal, trachea midline, no adenopathy. Heart--normal S1 and S2. No murmurs, rubs or gallops. Lungs--clear bilaterally, no respiratory distress, no accessory muscle use. Abdomen--normal bowel sounds and soft. Tender RUQ. Nondistended. Extremities--no cyanosis or clubbing. No edema. There are good distal pulses b/l. Dermatologic--normal skin turgor, normal color, no abnormal lymph nodes, no rash. Neurologic--cranial nerves II through XII grossly intact. Rheumatologic--normal range of motion. Psychiatric--normal affect. Results & Data Vital Signs (Past 12 Hours) Vital Signs Temp Pulse Pulse Resp BP BP Pulse Ox 11/02/18 02:25 96 H 18 136/80 95 11/02/18 00:36 91 H 18 145/100 H 98 11/01/18 23:09 98.4 F 106 H 19 146/88 H 97 Laboratory Results Laboratory Results WBC 8.32 K/uL (4.8-10.8) 11/02/18 00:25 RBC 4.48 M/uL (4.2-5.4) 11/02/18 00:25 Hgb 14.3 g/dL (12.0-16.0) 11/02/18 00:25 Hct 41.8 % (37-47) 11/02/18 00:25 MCV 93.3 fL (80-100) 11/02/18 00:25 MCH 31.9 pg (25-34) 11/02/18 00:25 MCHC 34.2 g/dL (32-36) 11/02/18 00:25 RDW Std Deviation 43.7 fL (36.4-46.3) 11/02/18 00:25 RDW Coeff of Georgette 12.9 % (11.5-14.5) 11/02/18 00:25 Plt Count 236 K/uL (130-400) 11/02/18 00:25 MPV 10.9 fL (7.4-10.4) H 11/02/18 00:25 Immature Gran % (Auto) 0.4 % 11/02/18 00:25 Neut % (Auto) 66.9 % 11/02/18 00:25 Lymph % (Auto) 20.4 % 11/02/18 00:25 [place] % (Auto) 8.8 % 11/02/18 00:25 Eos % (Auto) 3.1 % 11/02/18 00:25 Baso % (Auto) 0.4 % 11/02/18 00:25 Immature Gran # (Auto) 0.03 K/uL (0.00-0.02) H 11/02/18 00:25 Neut # (Auto) 5.57 K/uL (1.4-6.5) 11/02/18 00:25 Lymph # (Auto) 1.70 K/uL (1.2-3.4) 11/02/18 00:25 [place] # (Auto) 0.73 K/uL (0.11-0.59) H 11/02/18 00:25 Eos # (Auto) 0.26 K/uL (0-0.5) 11/02/18 00:25 Baso # (Auto) 0.03 K/uL (0-0.2) 11/02/18 00:25 Sodium 137 mmol/L (136-145) 11/02/18 00:25 Potassium 3.9 mmol/L (3.5-5.1) 11/02/18 00:25 Chloride 99 mmol/L (98-107) 11/02/18 00:25 Carbon Dioxide 31 mmol/L (21-32) 11/02/18 00:25 Anion Gap 7.0 (3-11) 11/02/18 00:25 BUN 11 mg/dl (7-18) 11/02/18 00:25 Creatinine 0.77 mg/dl (0.6-1.2) 11/02/18 00:25 Est Cr Clr Drug Dosing Not Reportable 11/02/18 00:25 Est GFR ( Amer) 108.8 11/02/18 00:25 Est GFR (Non-Af Amer) 93.9 11/02/18 00:25 BUN/Creatinine Ratio 14.1 (10-20) 11/02/18 00:25 Glucose 170 mg/dl (70-99) H 11/02/18 00:25 Calcium 11.1 mg/dl (8.5-10.1) H 11/02/18 00:25 Total Bilirubin 0.4 mg/dl (0.2-1) 11/02/18 00:25 AST 19 U/L (15-37) 11/02/18 00:25 ALT 39 U/L (12-78) 11/02/18 00:25 Alkaline Phosphatase 134 U/L (45-117) H 11/02/18 00:25 Total Creatine Kinase 60 U/L (26-192) 11/02/18 00:25 CK-MB (CK-2) < 1.0 ng/ml (0.5-3.6) 11/02/18 00:25 CK/CKMB % Calc TNP 11/02/18 00:25 Troponin I < 0.015 ng/ml (0-0.045) 11/02/18 00:25 Total Protein 7.5 gm/dl (6.4-8.2) 11/02/18 00:25 Albumin 3.8 gm/dl (3.4-5.0) 11/02/18 00:25 Globulin 3.7 gm/dl (2.5-4.0) 11/02/18 00:25 Albumin/Globulin Ratio 1.0 (0.9-2) 11/02/18 00:25 Lipase 211 U/L (73-393) 11/02/18 00:25 Diagnostic Findings [facility] Patient: ARIS ALEXIS (Female) Age: 42 MR #: [id number] Status: ER Date: 11/02/18 01:15 Slices: 43 History: RUQ PAIN. VOMITING Priors: CT 12/20/17 Tech: Swapna Grace @ [phone] Exams: US RUQ Accession Numbers: [id number] Preliminary Findings Only See Final Report For Complete Findings US RUQ: Hepatic steatosis. The gallbladder is distended containing multiple gallstones. No significant gallbladder wall thickening. No definite pericholecystic fluid. There is focal fatty sparing adjacent to the gallbladder. Positive sonographic Magana sign. Findings could represent acute cholecystitis in the correct clinical setting. Consider HIDA scan for confirmation. No biliary dilatation. No hydronephrosis or nephrolithiasis. Radiologist: Hien Peoples MD Study ready at 01:21 and initial results transmitted at 01:40 *This report constitutes a preliminary interpretation only. Non-acute findings felt to be unrelated to the clinical presentation may not be discussed in this report. The study will be interpreted and a final report will be generated by the local Radiologist the following shift. To reach the hospital radiology department call [phone]. If a discrepancy is found between the preliminary and final interpretations of this study, please notify us via our Client Portal at [email or web address], under [email or web address]. You can also fax this report with a description of the discrepancy, or include the final report, to our daytime fax number [phone]. If faxing, please indicate the severity of discrepancy using one of the following categories: [ ] 1 - Agree/Informational [ ] 2 - Unlikely to Affect Management [ ] 3 - Possible Eventual Change of Management [ ] 4 - Probable Immediate Change of Management For all other patient related information, please fax us at [phone]. [id number] [facility] Patient: ARIS ALEXIS (Female) Age: 42 MR #: [id number] Status: ER Date: 11/02/18 02:24 Slices: [phone] History: RUQ PAIN , Priors: Tech: Josué Vazquez @ [phone] Exams: CT ABDOMEN & PELVIS With Contrast Contrast: Oral - High Density Amt: 30 ML GASTRO, IV Amt: 93 ML OPTIRAY 320 Accession Numbers: [id number] Preliminary Findings Only See Final Report For Complete Findings CT ABDOMEN & PELVIS With Contrast: The gallbladder is distended containing multiple gallstones with gallbladder wall thickening and adjacent edema concerning for acute cholecystitis. No biliary dilatation Hepatic steatosis. Diverticulosis without diverticulitis. Normal appendix. No bowel wall thickening or obstruction. Small hiatal hernia. Expected post operative changes from Zack fundoplication. Radiologist: Hien Peoples MD Study ready at 02:28 and initial results transmitted at 02:51 *This report constitutes a preliminary interpretation only. Non-acute findings felt to be unrelated to the clinical presentation may not be discussed in this report. The study will be interpreted and a final report will be generated by the local Radiologist the following shift. To reach the hospital radiology department call [phone]. If a discrepancy is found between the preliminary and final interpretations of this study, please notify us via our Client Portal at [email or web address], under [email or web address]. You can also fax this report with a description of the discrepancy, or include the final report, to our daytime fax number [phone]. If faxing, please indicate the severity of discrepancy using one of the following categories: [ ] 1 - Agree/Informational [ ] 2 - Unlikely to Affect Management [ ] 3 - Possible Eventual Change of Management [ ] 4 - Probable Immediate Change of Management For all other patient related information, please fax us at [phone]. Code Status & VTE Plan Code Status Full code VTE Prophylaxis Plan VTE Prophylaxis will be ordered: Yes PG Care Time/CCT Total # of Minutes Spent Total Time Spent with Patient: Total time spent is greater than 50% in coordination of care (as documented) at patient's floor/unit and/or counseling patient: (1) Bipolar disorder Active/Remission status: remission status unspecified Qualified Code(s): F31.9 - Bipolar disorder, unspecified (2) Migraines Migraine type: unspecified Status migrainosus presence: without status migrainosus Intractability: not intractable Qualified Code(s): G43.909 - Migraine, unspecified, not intractable, without status migrainosus
[2018-11-02] MEDS ORDERED: PIPERACILL/TAZOBAC CONSULT ACTIVE PRN (03:40)
[2018-11-02] MEDS ORDERED: ONDANSETRON INJ 2 MG/ML 2 ML VIAL IV PRN ×2 (03:40→08:41)
[2018-11-02] MEDS ORDERED: ACETAMINOPHEN 1000 MG/100 ML IV IV PRN (03:40)
[2018-11-02] MEDS: MoRPHine SULFATE 4 MG/ML 1 ML CARP\\VIAL IV PRN ×3 (03:57→15:42)
[2018-11-02] MEDS: NSS + 20MEQ KCL 20 MEQ/1,000 ML BAG IV SCH ×3 (03:57→23:00)
[2018-11-02] MEDS ORDERED: PIPERACILLIN/TAZOBACTAM 4.5 GM in DEXTROSE 5% 100 ML IV ONE (05:00)
[2018-11-02] MEDS ORDERED: ALBUTEROL 0.5% NEB SOLN 2.5 MG/0.5 ML VIAL NEB PRN (05:53)
[2018-11-02] MEDS ORDERED: FAMOTIDINE 20 MG in SYRINGE 3 ML IV SCH (06:00)
--- NOTE | 2018-11-02 06:05 | Emergency Department Note ---
Entered by Frida Hernandez acting as a scribe for Ananda Kenney MD History of Present Illness General Chief complaint: Abdominal Pain Stated complaint: PAIN LOWER CHEST ABOVE STOMACH Time Seen by Provider: 11/01/18 23:11 Source: patient History of Present Illness Provider complaint: abdominal pain Onset (ago): hour(s) greater than 10 Location: abdomen and right Pain Consistency: + intermittent Maximum Pain Intensity: 8 Relieved By: + none Exacerbated By: + movement and + other (deep breaths) Associated symptoms: + denies other symptoms The patient is a 42 y/o female who presents to the emergency department for evaluation of intermittent pain in the right upper quadrant of her abdomen that began 12 hours ago. The patient states that she was eating this morning when the pain began and it persisted throughout the day. She notes the pain is worse with deep breathing. The patient states that the pain has been so intense that she cries and becomes sick to her stomach. The notes the patient has threw up a few times as well today. The patient reports no history of abdominal surgeries. She denies any other symptoms. Home Medications Home Medications Medication Instructions Recorded Confirmed Type prazosin 5 mg PO HS 02/10/18 11/01/18 History calcium carbonate [Calcium 500] 1,000 mg PO QAM 04/10/18 11/01/18 History duloxetine [Cymbalta] 30 mg PO BID 04/10/18 11/01/18 History divalproex 1,250 mg PO HS 07/27/18 11/01/18 History acetaminophen [Tylenol Extra 500 mg PO Q6H PRN 10/05/18 11/01/18 History Strength] amitriptyline 25 mg PO HS 10/05/18 11/01/18 History amoxicillin-pot clavulanate 1 tab PO Q12H 10/05/18 11/01/18 History [Augmentin] ferrous sulfate 325 mg PO QAM 10/05/18 11/01/18 History propranolol 120 mg PO QAM 10/05/18 11/01/18 History meclizine 25 mg PO TID PRN #20 tab 10/19/18 11/01/18 Rx ondansetron 4 mg PO Q6H PRN #10 tab 10/19/18 11/01/18 Rx Allergies Allergy/AdvReac Type Severity Reaction Status Date / Time pantoprazole Allergy Severe Swelling Verified 11/01/18 23:24 of throat lamotrigine AdvReac Mild Rash Verified 11/01/18 23:24 Past Med/Surg History Medical History AV block Slurred speech Bipolar disorder Migraines Recovering alcoholic Migraine (Inactive) Surgical History H/O lumbosacral spine surgery History of Zack fundoplication Family History Mother Brain tumor Hypertension Breast cancer Father Depression with anxiety Prostate cancer Other No significant family history Social History Preferred Language: Armenian Communication Ability: Effective 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 and A total of 10 systems reviewed and were otherwise negative Physical Exam Vital Signs Vital Signs - 24 hr 11/01/18 23:09 11/02/18 00:36 11/02/18 02:25 Temperature 36.9 C Temperature Source Oral Sepsis Recent Fever Within 48 Hours No Sepsis New/Unexplained Change in Mental Status No Sepsis Action Taken by Nursing No Action Required Pulse Rate 106 H Pulse Rate [Apical] 91 H 96 H Respiratory Rate 19 18 18 Respiratory Effort / Characteristics Non-Labored Spontaneous Respiratory Depth Normal Respiratory Pattern Regular Blood Pressure 146/88 H Blood Pressure [Left Arm] 145/100 H 136/80 Blood Pressure Mean 107 Blood Pressure Mean [Left Arm] 115 98 Blood Pressure Position Sitting Pulse Oximetry 97 98 95 Oxygen Delivery Method Room Air Room Air Room Air GENERAL: Awake, alert, well-appearing, in no acute distress HENT: Normocephalic, atraumatic. Oropharynx unremarkable. EYES: Normal conjunctiva. Sclera non-icteric. NECK: Supple. No nuchal rigidity. FROM. No JVD. RESPIRATORY: Clear to auscultation. CARDIAC: Regular rate, normal rhythm. Extremities warm and well perfused. Pulses equal. ABDOMEN: Soft, non-distended. Tenderness to palpation of right upper quadrant. No rebound or guarding. No masses. RECTAL: Deferred. MUSCULOSKELETAL: Chest examination reveals no tenderness. The back is s ymmetrical on inspection without obvious abnormality. There is no CVA tenderness to palpation. No joint edema. LOWER EXTREMITIES: Calves are equal size bilaterally and non-tender. No edema. No discoloration. NEURO: Normal sensorium. No sensory or motor deficits noted. SKIN: No rash or jaundice noted. Course 2329: Past medical records reviewed. The patient was evaluated in room B11. A complete history and physical exam was performed. 0150: I spoke with Dr. David who is at bedside regarding the patient. 0154:I spoke with Dr. Arizmendi hospitalist. He will evaluate for further management. Consultations Consultation #1: I spoke with Dr. David Time: 01:50 Consultation #2: I spoke with Dr. Arizmendi hospitalist Time: 01:54 Administered Medications Potassium Chloride/Sodium Chloride (Normal Saline W/20 Meq Kcl) 20 meq in 1,000 mls @ 100 mls/hr IV .Q10H MARCY Stop: 12/02/18 03:39 Last Admin: 11/02/18 03:57 Dose: 100 mls/hr Documented by: [id number] Ioversol (Optiray 320 100ml) 100 ml IV ONCE PRN PRN Reason: Interaction Checking Stop: 11/06/18 02:24 Last Admin: 11/02/18 02:26 Dose: 93 ml Documented by: [id number] Morphine Sulfate (Morphine Sulfate) 4 mg IV Q3H PRN PRN Reason: Pain Stop: 11/16/18 03:39 Last Admin: 11/02/18 03:57 Dose: 4 mg Documented by: [id number] Discontinued Medications Hydromorphone HCl (Dilaudid) 1 mg IV Q15M PRN PRN Reason: Pain Stop: 11/15/18 23:32 Last Admin: 11/02/18 03:04 Dose: 1 mg Documented by: [id number] Admin: 11/02/18 01:47 Dose: 1 mg Documented by: [id number] Admin: 11/02/18 01:10 Dose: 1 mg Documented by: [id number] Admin: 11/02/18 00:32 Dose: 1 mg Documented by: [id number] Sodium Chloride (Nss 1000ml) 1,000 mls @ 999 mls/hr IV .Q1H1M MARCY Stop: 11/02/18 00:45 Last Admin: 11/02/18 00:32 Dose: 999 mls/hr Documented by: [id number] Cefoxitin Sodium (Mefoxin) 2,000 mg in 60 mls @ 100 mls/hr IV NOW STA Stop: 11/02/18 02:19 Last Admin: 11/02/18 02:53 Dose: 100 mls/hr Documented by: [id number] Piperacillin Sod/Tazobactam (Sod 4.5 gm/ Dextrose) 120 mls @ 200 mls/hr IV NOW ONE; Protocol Stop: 11/02/18 05:35 Last Admin: 11/02/18 05:16 Dose: 200 mls/hr Documented by: [id number] Ondansetron HCl (Zofran) 4 mg IV NOW STA Stop: 11/01/18 23:34 Last Admin: 11/02/18 00:32 Dose: 4 mg Documented by: [id number] Medical Decision Making Differential Diagnosis Differential considered: pancreatitis, hepatitis, or acute cholecystitis, AAA, UTI, pyelonephritis, kidney stones, appendicitis, diverticulitis, shingles, bowel obstruction mesenteric ischemia, intussusception,hernia, testicular torsion, ovarian torsion, ruptured ovarian cyst,ectopic , . Medical Records Attestation: I reviewed the patient's medical records. Home Medications Current Medication List: was personally reviewed by me Laboratory Data Attestation: I reviewed the patient's lab results. Result diagrams: 11/02/18 00:25 11/02/18 00:25 Lab Results 11/02/18 11/02/18 Range/Units 00:25 00:25 WBC 8.32 (4.8-10.8) K/uL RBC 4.48 (4.2-5.4) M/uL Hgb 14.3 (12.0-16.0) g/dL Hct 41.8 (37-47) % MCV 93.3 (80-100) fL MCH 31.9 (25-34) pg MCHC 34.2 (32-36) g/dL RDW Std Deviation 43.7 (36.4-46.3) fL RDW Coeff of Georgette 12.9 (11.5-14.5) % Plt Count 236 (130-400) K/uL MPV 10.9 H (7.4-10.4) fL Immature Gran % (Auto) 0.4 % Neut % (Auto) 66.9 % Lymph % (Auto) 20.4 % [place] % (Auto) 8.8 % Eos % (Auto) 3.1 % Baso % (Auto) 0.4 % Immature Gran # (Auto) 0.03 H (0.00-0.02) K/uL Neut # (Auto) 5.57 (1.4-6.5) K/uL Lymph # (Auto) 1.70 (1.2-3.4) K/uL [place] # (Auto) 0.73 H (0.11-0.59) K/uL Eos # (Auto) 0.26 (0-0.5) K/uL Baso # (Auto) 0.03 (0-0.2) K/uL Sodium 137 (136-145) mmol/L Potassium 3.9 (3.5-5.1) mmol/L Chloride 99 (98-107) mmol/L Carbon Dioxide 31 (21-32) mmol/L Anion Gap 7.0 (3-11) BUN 11 (7-18) mg/dl Creatinine 0.77 (0.6-1.2) mg/dl Est Cr Clr Drug Dosing Not Reportable Est GFR ( Amer) 108.8 Est GFR (Non-Af Amer) 93.9 BUN/Creatinine Ratio 14.1 (10-20) Glucose 170 H (70-99) mg/dl Calcium 11.1 H (8.5-10.1) mg/dl Total Bilirubin 0.4 (0.2-1) mg/dl AST 19 (15-37) U/L ALT 39 (12-78) U/L Alkaline Phosphatase 134 H (45-117) U/L Total Creatine Kinase 60 (26-192) U/L CK-MB (CK-2) < 1.0 (0.5-3.6) ng/ml CK/CKMB % Calc TNP Troponin I < 0.015 (0-0.045) ng/ml Total Protein 7.5 (6.4-8.2) gm/dl Albumin 3.8 (3.4-5.0) gm/dl Globulin 3.7 (2.5-4.0) gm/dl Albumin/Globulin Ratio 1.0 (0.9-2) Lipase 211 (73-393) U/L Imaging Data Attestation: I personally reviewed and interpreted this imaging study as follows: My Impression: Single view chest x-ray interpreted by me, showed no congestion, pneumonia, or pneumothorax. Radiologist's Impression: US RUQ: Hepatic steatosis. The gallbladder is distended containing multiple gallstones. No significant gallbladder wall thickening. No definite pericholecystic fluid. There is focal fatty sparing adjacent to the gallbladder. Positive sonographic Magana sign. Findings could represent acute cholecystitis in the correct clinical setting. Consider HIDA scan for confirmation. No biliary dilatation. No hydronephrosis or nephrolithiasis. CT ABDOMEN & PELVIS With Contrast: The gallbladder is distended containing multiple gallstones with gallbladder wall thickening and adjacent edema concerning for acute cholecystitis. No biliary dilatation Hepatic steatosis. Diverticulosis without diverticulitis. Normal appendix. No bowel wall thickening or obstruction. Small hiatal hernia. Expected post operative changes from Zack fundoplication. ECG Data Attestation: I personally reviewed and interpreted this ECG as follows: Indication: abdominal pain Rate (beats per minute): 88 Rhythm: sinus rhythm Findings: + 1st degree AV block and + T-wave inversion (Anterior); no ST depression and no ST elevation Comparison ECG Date: from (10/19/18) Change: no significant change Blood Pressure Blood Pressure Findings: Elevated blood pressure MDM Narrative This is a 42-year-old female who presents emergency department during a period of high volume and high acuity complaining of right upper quadrant abdominal pain that started when she was eating earlier today. Patient's pain has not been relieved by anything at home. She does have a past medical history of a Zack fundoplication. Due to this and using shared medical decision-making with the patient the decision was made to send patient for an ultrasound as well as a CAT scan the abdomen pelvis. She does not have an elevation in her white blood cell count has a normal liver profile normal kidney profile. Her ultrasound is concerning for acute cholecystitis. Her CAT scan is also concerning for acute cholecystitis. She was started on Mefoxin. She was given Dilaudid for her pain. Repeat examination revealed improvement in the patient's symptoms. I did discuss the case with the surgeon on-call who was kind enough to see the patient. The patient was discussed with the medicine service who agreed to admit the patient. Impression & Plan Abdominal pain, Acute cholecystitis Discharge Plan Visit Data *Final* Discharge Date/Time: 11/02/18 03:15 Chief Complaint: Abdominal Pain Stated Complaint: PAIN LOWER CHEST ABOVE STOMACH ED Provider: Ananda Kenney Discharge Problem: Abdominal pain, Acute cholecystitis Patient Disposition: Admitted As Inpatient Discharge Instructions Interventions: ED Discharge Assessment Last Done: 11/02/18 03:15 Discharge Problem: Abdominal pain Qualifiers: Abdominal location: unspecified location Qualified Code(s): R10.9 - Unspecified abdominal pain The scribe's documentation has been prepared under my direction and personally r eviewed by me in its entirety. I confirm that the note above accurately reflects all work, treatment, procedures, and medical decision making performed by me.
[2018-11-02] MEDS: PATIENT'S HEIGHT AND/OR WEIGHT NEEDED SCH ×2 (06:47→06:48)
--- NOTE | 2018-11-02 07:03 | Ultrasound Report ---
ABDOMINAL ULTRASOUND, RIGHT UPPER QUADRANT HISTORY: Right upper quadrant abdominal pain. COMPARISON: CTA of the abdomen and pelvis December 20, 2017 FINDINGS: Exam is compromised by suboptimal penetration. Increased hepatic echogenicity is consistent with fatty infiltration with suspected sparing within the gallbladder fossa and left hepatic lobe. T here is no biliary ductal dilatation. There are gallstones within the gallbladder. Gallbladder is dis tended. Positive sonographic Magana sign was noted. Gallbladder wall thickness is normal. The pancrea s is largely obscured. There is no right hydronephrosis. IMPRESSION: 1. Cholelithiasis, mild gallbladder distention and positive sonographic Magana sign. These findings f avor acute cholecystitis. 2. No biliary ductal dilatation. 3. Fatty infiltration of the liver with suspected sparing within the left hepatic lobe. Electronically signed by: Anurag Shah M.D. 11/02/2018 7:01 AM
[2018-11-02 07:04] LABS: Estimated Average Glucose 114 mg/dl; Hemoglobin A1C 5.6 % (4.5-5.6)
--- NOTE | 2018-11-02 07:28 | XRay Report ---
XR chest 1V portable HISTORY: Atypical Chest Pain COMPARISON: Chest 04/10/2016. FINDINGS: The lungs are clear. Cardiac silhouette is normal in size. No pleural effusions. No pneumot horax. IMPRESSION: No acute process. Electronically signed by: Patrick Rojas M.D. 11/02/2018 7:26 AM
--- NOTE | 2018-11-02 07:32 | CT Scan Report ---
CT OF THE ABDOMEN AND PELVIS WITH CONTRAST CLINICAL HISTORY: Epigastric pain. History of Zack. COMPARISON STUDY: CTA of the abdomen and pelvis December 20, 2017. Right upper quadrant ultrasound Oct. TECHNIQUE: Following IV administration of 93 mL of Optiray-320, axial images of the abdomen and pelvi s were obtained from the lung bases to the proximal femurs. Images were reviewed in the axial, sagitt al, and coronal planes. IV contrast was administered without complication. Automated exposure contro l was utilized for the study. A dose lowering technique was utilized adhering to the principles of A GILLIAN. CT DOSE: 897.61 mGy.cm FINDINGS: Fatty infiltration of the liver is noted. There are postoperative findings at the gastroeso phageal junction which appear unchanged from prior exam of December 20, 2017. The spleen, adrenal gland s, kidneys and pancreas are normal. There is no hydronephrosis. The gallbladder is mildly distended. There are gallstones within the gallbladder. There is mild gallbladder wall thickening with possible trace pericholecystic infiltration. There is no peripancreatic infiltration. Caliber of the common bi le duct is at the upper limits of normal. There is no evidence for a bowel obstruction. The appendix is normal. There is no lymphadenopathy. There is no ascites. No suspicious osseous lesions are noted. Postoperative findings within the spine are noted. IMPRESSION: 1. Cholelithiasis, mild gallbladder distention and trace pericholecystic infiltration with mild gallb ladder wall thickening. These findings favor acute cholecystitis. A hepatobiliary scan could be obtai loyda if indicated. 2. Fatty liver. Electronically signed by: Anurag Shah M.D. 11/02/2018 7:30 AM
[2018-11-02 08:23] LABS: Pregnancy Test, Serum Negative (Negative)
--- NOTE | 2018-11-02 08:27 | History & Physical Bridge Note ---
Date of Service November 02, 2018 History & Physical Bridge Note I have examined the patient, reviewed the History & Physical and in the interval since the performance of the History & Physical I have noted the following changes of clinical significance: no changes noted
[2018-11-02] MEDS ORDERED: MIDAZOLAM HCL 1 MG/ML 2ML VIAL ONE (08:32)
[2018-11-02] MEDS ORDERED: fentaNYL citrate 100 MCG/2 ML VIAL ONE (08:32)
[2018-11-02] MEDS ORDERED: BUPIVACAINE 0.5 % 5 MG/1 ML MPF 30ML VIAL ONE (08:33)
[2018-11-02] MEDS ORDERED: BUPIVACAINE/EPINEPHRINE 0.5% MPF 1:200,000 30 ML VIAL ONE (08:33)
[2018-11-02] MEDS: DULOXETINE HCL 30 MG CAP PO SCH ×2 (08:35→20:14)
[2018-11-02] MEDS: PROPRANOLOL HCL 60 MG LA CAP PO SCH (08:35)
[2018-11-02] MEDS: PIPERACILLIN/TAZOBACTAM 3.375 GM in DEXTROSE 5% 100 ML IV SCH ×2 (08:36→17:49)
--- NOTE | 2018-11-02 08:37 | Anesthesiology Consultation ---
Date of Service November 02, 2018 Assessment & Plan (1) Encounter for pre-operative examination: Chart Review Chart Review: Acceptable Risk for Surgery and Patient NOT seen in Pre Admission Testing Consults Requested none History Surgery Operation Date: 11/02/18 08:40 Proposed Procedures p Laparoscopic Cholecystectomy - Shon Mancera DO, FACS Height/Weight Height: 5 ft 6 in Weight: 96.9 kg Allergies Allergy/AdvReac Type Severity Reaction Status Date / Time pantoprazole Allergy Severe Swelling Verified 11/01/18 23:24 of throat lamotrigine AdvReac Mild Rash Verified 11/01/18 23:24 Medications Home Medications Medication Instructions Recorded Confirmed Last Taken prazosin 5 mg PO HS 02/10/18 11/01/18 10/18/18 calcium carbonate [Calcium 500] 1,000 mg PO QAM 04/10/18 11/01/18 10/19/18 duloxetine [Cymbalta] 30 mg PO BID 04/10/18 11/01/18 10/19/18 divalproex 1,250 mg PO HS 07/27/18 11/01/18 10/18/18 acetaminophen [Tylenol Extra 500 mg PO Q6H PRN 10/05/18 11/01/18 10/05/18 10:00 Strength] 500mg amitriptyline 25 mg PO HS 10/05/18 11/01/18 10/18/18 amoxicillin-pot clavulanate 1 tab PO Q12H 10/05/18 11/01/18 10/19/18 [Augmentin] ferrous sulfate 325 mg PO QAM 10/05/18 11/01/18 10/19/18 propranolol 120 mg PO QAM 10/05/18 11/01/18 10/19/18 meclizine 25 mg PO TID PRN #20 tab 10/19/18 11/01/18 Unknown ondansetron 4 mg PO Q6H PRN #10 tab 10/19/18 11/01/18 Unknown Active Medications Generic Name Dose Route Start Last Admin Trade Name Freq PRN Reason Stop Dose Admin Duloxetine HCl 30 mg 11/02/18 09:00 11/02/18 08:35 Cymbalta PO 12/02/18 08:59 Not Given BID MARCY Potassium Chloride/Sodium Chloride 20 meq in 1,000 mls @ 100 mls/hr 11/02/18 03:40 07/12/19 03:57 Normal Saline W/20 Meq Kcl IV 12/02/18 03:39 100 mls/hr .Q10H MARCY Administration Piperacillin Sod/Tazobactam 115 mls @ 28.75 mls/hr 11/02/18 10:00 11/02/18 08:36 Sod 3.375 gm/ Dextrose IV 11/12/18 09:59 Not Given Q8H MARCY Famotidine 20 mg/ Syringe 5 mls @ 2.5 mls/min 11/02/18 06:00 11/02/18 06:51 IV 12/02/18 05:59 2.5 mls/min Q12H MARCY Administration Ioversol 100 ml 11/02/18 02:25 11/02/18 02:26 Optiray 320 100ml IV 11/06/18 02:24 93 ml ONCE PRN Administration Interaction Checking Morphine Sulfate 4 mg 11/02/18 03:40 11/02/18 03:57 Morphine Sulfate IV 11/16/18 03:39 4 mg Q3H PRN Administration Pain Propranolol HCl 120 mg 11/02/18 09:00 11/02/18 08:35 Inderal La PO 12/02/18 08:59 Not Given QAM MARCY Past Medical History Medical History 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 degree AV block Slurred speech Bipolar disorder Migraines Recovering alcoholic Migraine (Inactive) Exercise / Class Metabolic Activity II 4-5 Yardwork/Stairs/Walk up hill Past Family History Family History Mother Brain tumor Hypertension Breast cancer Father Depression with anxiety Prostate cancer Other No significant family history Past Surgical History Surgical History H/O lumbosacral spine surgery History of Zack fundoplication Past Anesthesia History No Hx of Anesthesia Complications and No Family Hx of Anesthesia Complications History of PONV No Hx of PONV and No Hx of Motion Sickness Social History Smoking Status: Current every day smoker tobacco type: cigarettes Smoking cigarettes per day: 5 Do You Dip or Chew Tobacco: No Hx Alcohol Use: No Hx Substance Use: No substance use type: does not use Physical Exam Vital Signs Last Vital Signs Temp 37.1 C 11/02/18 07:56 Pulse 95 H 11/02/18 07:56 Resp 19 11/02/18 07:56 BP 128/78 11/02/18 07:56 Pulse Ox 92 11/02/18 07:56 Testing Laboratory Results 11/02/18 00:25 11/02/18 00:25 Hemoglobin A1c 5.6 % (4.5-5.6) 11/02/18 06:21 Electrocardiogram Date: 11/01/18 Findings: + NSR @ (78) Sinus rhythm with 1st degree A-V block Otherwise normal ECG When compared with ECG of 19-OCT-2018 21:03, IN interval has increased T wave inversion less evident in Anterior leads Chest X-Ray Date: 11/02/18 XR chest 1V portable HISTORY: Atypical Chest Pain COMPARISON: Chest 04/10/2016. FINDINGS: The lungs are clear. Cardiac silhouette is normal in size. No pleural effusions. No pneumothorax. IMPRESSION: No acute process.
[2018-11-02] MEDS ORDERED: ATROPINE SULFATE 0.1 MG/ML 10ML SYR IV PRN (08:41)
[2018-11-02] MEDS ORDERED: ePHEDrine sulfate 50 MG/ML AMP IV PRN (08:41)
[2018-11-02] MEDS ORDERED: LIDOCAINE HCL 2% 2 ML VIAL/AMP(20MG/ML) INFIL ONE (09:36)
[2018-11-02] MEDS ORDERED: ROCURONIUM BROMIDE 10 MG/ML 5 ML VIAL ONE (09:36)
[2018-11-02] MEDS ORDERED: ONDANSETRON INJ 2 MG/ML 2 ML VIAL ONE (09:36)
[2018-11-02] MEDS ORDERED: DEXAMETHASONE SOD INJ 4 MG/ML VIAL ONE (09:36)
[2018-11-02] MEDS ORDERED: GLYCOPYRROLATE 0.2 MG/ML VIAL ONE (09:36)
[2018-11-02] MEDS ORDERED: NEOSTIGMINE METHYLSULFATE 5 MG/5 ML SYR ONE (09:36)
[2018-11-02] MEDS ORDERED: PROPOFOL IV EMULSION 10 MG/ML 20 ML VIAL IV ONE (09:36)
[2018-11-02] MEDS ORDERED: LARYING-O-JET KIT (LTA) ONE (09:36)
--- NOTE | 2018-11-02 10:07 | Operative Report ---
Post Operative Report Pre & Post Diagnosis Operation Date: 11/02/18 08:40 Pre-Op Diagnosis: ACUTE CHOLECYSTITIS Post-Op Diagnosis: ACUTE CHOLECYSTITIS Procedure Operation Date: 11/02/18 08:40 Actual Procedures p Laparoscopic Cholecystectomy(Not Applicable) - Shon Mancera DO, LUIS A Surgeon Shon Mancera DO, LUIS A [employer] Farm Manager Kody Perez Estimated Blood Loss 5 Findings Consistent with Post-Op Diagnosis Acute cholecystitis. Critical view of safety obtained. Cystic duct and artery doubly clipped and divided. Specimens Gallbladder Anesthesia Type General Complications none Disposition Accompanied Patient To Recovery: No Disposition: Recovery Room Indications 42-year-old female presented to the emergency department with right upper quadrant abdominal pain and signs symptoms of acute cholecystitis. Plan for laparoscopic cholecystectomy with possible cholangiogram. The risks of the procedure were discussed, all questions were answered, and the patient agreed to proceed with surgery as planned. Description of Procedure The patient was properly identified, consented, and taken to the operating room where she was placed in the supine position. General endotracheal anesthesia was induced. SCDs and a safety belt were placed. Preoperative antibiotics were administered. The patient's abdomen was prepped and draped in the standard sterile fashion. A surgical timeout was performed and all parties were in agreement that this was the correct patient and procedure to be performed and we continued as planned. An incision was made superior and to the left of the umbilicus overlying the rectus muscle and the Veress needle was inserted. Saline drop test confirmed entry into the peritoneum. The abdomen was insufflated with carbon dioxide which the patient tolerated without incident. The abdomen was then entered using the Optiview technique and a 5 mm trocar. The laparoscope was inserted and no damage from initial trocar or Veress needle placement was noted, no gross abnormalities were noted within the 4 quadrants of the abdomen. An 11 mm port was placed in the subxiphoid position and two 5 mm ports were then placed in the right subcostal position. The patient was placed in reverse Trendelenburg position and rotated towards the left. The gallbladder was acutely inflamed. The dome of the gallbladder was retracted towards the left upper quadrant and the infundibulum was retracted toward the right lower quadrant revealing Calot's triangle. Peritoneal attachments were taken down with electrocautery and blunt dissection. The cystic duct and artery were circumferentially dissected. A window of safety was obtained showing the cystic duct entering the gallbladder with no aberrant structures noted. The cys tic duct and artery were doubly clipped and divided. The gallbladder was then lifted off the gallbladder fossa with electrocautery. The gallbladder was placed in an Endo Catch bag and removed through the subxiphoid port site. The right upper quadrant was irrigated and hemostasis was found to be good. 5 mm trochars were removed under direct visualization and the abdomen was allowed to collapse. The subxiphoid port site fascia was closed with 0 Vicryl suture. The wound was irrigated, and the skin of all ports was closed with 4-0 Monocryl subcuticular sutures. Dermabond was placed over the wounds. The patient was extubated in the operating room and taken to the PACU where she recovered without apparent incident. All sponge, instrument and needle counts were correct at the conclusion of the procedure. The patient tolerated the procedure well. The physician's claims assistant was present and scrubbed for the entirety of the case and was essential in positioning the patient, prepping and draping, retraction and exposure, driving the laparoscope, removal of the gallbladder, closure the incisions, and placement of the dressings. I attest to the content of the Intraoperative Record and any orders documented therein. Any exceptions are noted below.
[2018-11-02] MEDS: fentaNYL citrate 100 MCG/2 ML VIAL IV PRN ×4 (10:44→10:59)
--- NOTE | 2018-11-02 11:13 | Anesthesiology Progress Note ---
Date of Service November 02, 2018 Anesthesia Post Procedure Vital Signs Vital Signs: Temp Pulse Pulse Pulse Resp BP BP 11/02/18 11:05 96 H 14 11/02/18 10:55 96 H 14 11/02/18 10:45 92 H 14 11/02/18 10:35 96 H 14 11/02/18 10:25 36 C L 92 H 16 11/02/18 08:44 37 C 92 H 18 11/02/18 07:56 37.1 C 95 H 19 11/02/18 03:30 36.7 C 105 H 20 11/02/18 03:15 100 H 18 116/80 11/02/18 02:25 96 H 18 136/80 11/02/18 00:36 91 H 18 145/100 H 11/01/18 23:09 36.9 C 106 H 19 146/88 H BP Pulse Ox 11/02/18 11:05 148/95 H 96 11/02/18 10:55 127/96 100 11/02/18 10:45 140/117 H 100 11/02/18 10:35 141/100 H 100 11/02/18 10:25 157/103 H 96 11/02/18 08:44 136/76 95 11/02/18 07:56 128/78 92 11/02/18 03:30 132/90 93 11/02/18 03:15 94 11/02/18 02:25 95 11/02/18 00:36 98 11/01/18 23:09 97 Pain Intensity Abdomen: Pain Intensity: 6 Transfer of Care Handoff Completed per policy Notes Mental Status: alert / awake / arousable and participated in evaluation Patient Amnestic to Procedure: Yes Nausea / Vomiting: adequately controlled Pain: adequately controlled Airway Patency, RR, SpO2: stable & adequate BP & HR: stable & adequate Hydration State: stable & adequate Anesthetic Complications: no major complications apparent and Pt Satisfied with anesthetic care
[2018-11-02] MEDS ORDERED: OXYCODONE/ACETAMINOPHEN 5mg/325mg TAB PO PRN (11:52)
[2018-11-02] MEDS: OXYCODONE/ACETAMINOPHEN 10-325 TAB PO PRN ×3 (13:20→22:23)
--- NOTE | 2018-11-02 15:30 | Hospitalist Progress Note ---
Date of Service November 02, 2018 Assessment & Plan (1) Acute calculous cholecystitis: Admit to medical surgical floor. Continue Zosyn Acetaminophen 1 g IV every 8 hours PRN mild pain or temperature. Morphine sulfate 4 mg IV every 3 hours as needed severe pain. NSS + KCl 20 mEq at 100 mils per hour until taking consistent po Consult general surgery Dr. Mancera - s/p cholecystectomy 11/02 (2) Bipolar disorder: Bipolar disorder/anxiety/depression/migraines- Continue divalproex extended release 1250 mg p.o. at bedtime, duloxetine 30 mg p.o. twice daily, Inderal LA 120 mg every morning, and prazosin 5 mg p.o. at bedtime. (3) Migraines: See above (4) Hypercalcemia: Calcium level was 11.1 upon admission - repeat level tomorrow am Check vitamin D Parathyroid hormone level was low (5) Hyperglycemia: A1c 5.6 (6) GERD (gastroesophageal reflux disease): GERD/history of Zack fundoplication- change IV famotidine to po famotidine (7) History of Zack fundoplication: See above (8) Tobacco abuse: If required, NicoDerm patch. Albuterol-nebulizer every 2 hours as needed. (9) Anxiety: See above (10) Depression: See above (11) DVT prophylaxis: SCDs Subjective Post cholecystectomy today. Some abdominal pain but otherwise no complaints. Review of Systems Review of Systems: All systems reviewed & are unremarkable except as noted in HPI & below Physical Exam Physical Exam: General: no distress Eyes: normal inspection, PERLL Respiratory: chest non tender, clear to auscultation, normal breath sounds, no respiratory distress, no accessory muscle use Cardiac: regular rate and rhythm, no rub or gallop, no murmur, no edema, no jvd GI/: hypoactive bowel sounds, abd tenderness to palpation, soft, non distended Extremities: normal range of motion, normal strength, non tender Neuro/Psych: alert and oriented x 3, normal mood and affect Skin: normal color, dry Results & Data Vital Signs (Past 12 Hours) Vital Signs Temp Pulse Pulse Resp BP Pulse Ox 11/02/18 14:54 98 H 18 125/87 92 11/02/18 13:48 36.8 C 102 H 18 151/89 H 93 11/02/18 12:45 37.0 C 97 H 18 137/88 94 11/02/18 12:15 37.0 C 96 H 18 137/94 95 11/02/18 11:45 37.1 C 95 H 16 126/86 95 11/02/18 11:25 37.2 C 93 H 14 119/81 96 11/02/18 11:15 101 H 13 132/92 99 11/02/18 11:05 96 H 14 148/95 H 96 11/02/18 10:55 96 H 14 127/96 100 11/02/18 10:45 92 H 14 140/117 H 100 11/02/18 10:35 96 H 14 141/100 H 100 11/02/18 10:25 36 C L 92 H 16 157/103 H 96 11/02/18 08:44 37 C 92 H 18 136/76 95 11/02/18 07:56 37.1 C 95 H 19 128/78 92 11/02/18 03:30 36.7 C 105 H 20 132/90 93 PG Care Time/CCT Total # of Minutes Spent Total Time Spent with Patient: Total time spent is greater than 50% in coordination of care (as documented) at patient's floor/unit and/or counseling patient: (1) Bipolar disorder Active/Remission status: remission status unspecified Qualified Code(s): F31.9 - Bipolar disorder, unspecified (2) Migraines Migraine type: unspecified Status migrainosus presence: without status migrainosus Intractability: not intractable Qualified Code(s): G43.909 - Migraine, unspecified, not intractable, without status migrainosus
[2018-11-02] MEDS: MoRPHine SULFATE 2 MG/ML CARP IV PRN (19:32)
[2018-11-02] MEDS ORDERED: PRAZOSIN HCL 1 MG CAP PO SCH (21:00)
[2018-11-02] MEDS ORDERED: DIVALPROEX EXTENDED RELEASE 250 MG TABCR PO SCH (21:00)
[2018-11-03] MEDS: MoRPHine SULFATE 2 MG/ML CARP IV PRN ×3 (00:14→07:26)
[2018-11-03] MEDS: PIPERACILLIN/TAZOBACTAM 3.375 GM in DEXTROSE 5% 100 ML IV SCH (03:56)
[2018-11-03] MEDS: DULOXETINE HCL 30 MG CAP PO SCH (07:27)
[2018-11-03] MEDS: PROPRANOLOL HCL 60 MG LA CAP PO SCH (07:27)
--- NOTE | 2018-11-03 08:45 | Hospitalist Progress Note ---
Date of Service November 03, 2018 Assessment & Plan (1) Acute calculous cholecystitis: Admit to medical surgical floor. Continue Zosyn Acetaminophen 1 g IV every 8 hours PRN mild pain or temperature. Morphine sulfate 4 mg IV every 3 hours as needed severe pain. NSS + KCl 20 mEq at 100 mils per hour until taking consistent po Consult general surgery Dr. Mancera - s/p cholecystectomy 11/02 (2) Bipolar disorder: Bipolar disorder/anxiety/depression/migraines- Continue divalproex extended release 1250 mg p.o. at bedtime, duloxetine 30 mg p.o. twice daily, Inderal LA 120 mg every morning, and prazosin 5 mg p.o. at bedtime. (3) Migraines: See above (4) Hypercalcemia: Calcium level was 11.1 upon admission - repeat level tomorrow am Check vitamin D Parathyroid hormone level was low (5) Hyperglycemia: A1c 5.6 (6) GERD (gastroesophageal reflux disease): GERD/history of Zack fundoplication- change IV famotidine to po famotidine (7) History of Zack fundoplication: See above (8) Tobacco abuse: If required, NicoDerm patch. Albuterol-nebulizer every 2 hours as needed. (9) Anxiety: See above (10) Depression: See above (11) DVT prophylaxis: SCDs Results & Data Vital Signs (Past 12 Hours) Vital Signs Temp Pulse Resp BP Pulse Ox 11/03/18 07:13 36.6 C 102 H 15 127/75 95 11/03/18 03:53 37 C 102 H 18 134/74 93 11/02/18 23:10 37 C 104 H 20 121/68 95 PG Care Time/CCT Total # of Minutes Spent Total Time Spent with Patient: Total time spent is greater than 50% in coordination of care (as documented) at patient's floor/unit and/or counseling patient: (1) Bipolar disorder Active/Remission status: remission status unspecified Qualified Code(s): F31.9 - Bipolar disorder, unspecified (2) Migraines Migraine type: unspecified Status migrainosus presence: without status migrainosus Intractability: not intractable Qualified Code(s): G43.909 - Migraine, unspecified, not intractable, without status migrainosus
[2018-11-03] MEDS ORDERED: FAMOTIDINE 20 MG TAB PO SCH (09:00)
[2018-11-03] MEDS: NSS + 20MEQ KCL 20 MEQ/1,000 ML BAG IV SCH (09:12)
--- NOTE | 2018-11-03 09:12 | Surgery Progress Note ---
Date of Service November 03, 2018 Assessment & Plan (1) Acute cholecystitis: POD # 1 lap gavin doing well discharge once pain controlled oral pain meds at home f/u with Dr Mancera 2-3 weeks Present on Admission?: Yes Subjective Doing fairly well pain control is OK with oral pain meds eating well Review of Systems Constitutional: no fever and no chills Respiratory: no cough and no dyspnea Cardiovascular: no chest pain Gastrointestinal: + abdominal pain (mainly around upper incision , moderate); no nausea and no vomiting Musculoskeletal: no back pain Physical Exam Constitutional: well developed and well nourished; no acute distress Respiratory: normal respiratory effort Auscultation: lungs clear to auscultation bilaterally Cardiovascular: Rate/Rhythm: regular rate and regular rhythm Gastrointestinal (Abdomen): Inspection/Auscultation: normal bowel sounds; abdomen not distended Percussion/Palpation: + abdomen tender (mild); no guarding incisions clean and dry Musculoskeletal: Head/Neck/Chest: normocephalic and head atraumatic Skin: no rashes, warm and dry Results & Data Vital Signs (Past 12 Hours) Vital Signs Temp Pulse Resp BP Pulse Ox 11/03/18 07:13 36.6 C 102 H 15 127/75 95 11/03/18 03:53 37 C 102 H 18 134/74 93 11/02/18 23:10 37 C 104 H 20 121/68 95
[2018-11-03] MEDS: OXYCODONE/ACETAMINOPHEN 10-325 TAB PO PRN (09:17)
[2018-11-03 09:35] LABS: Hematocrit (blood only) 35.5 % (37-47); Hemoglobin 12.1 g/dL (12.0-16.0); Mean Corpuscular Hgb Conc 34.1 g/dL (32-36); Mean Corpuscular Volume 92.4 fL (80-100); Mean Platelet Volume 10.3 fL (7.4-10.4); Platelet Count 181 K/uL (130-400); RDW Coefficient of Variation 12.8 % (11.5-14.5); RDW Standard Deviation 43.4 fL (36.4-46.3); Red Blood Count 3.84 M/uL (4.2-5.4); White Blood Count 9.01 K/uL (4.8-10.8)
[2018-11-03 09:42] LABS: BUN Creatinine Ratio 13.4 (10-20); Calcium 8.1 mg/dl (8.5-10.1); Creatinine Clr Calc Pharmacy 140.4 ml/min; Est GFR (African American) 128.5; Est GFR (Non-African American) 110.9; Potassium 4.1 mmol/L (3.5-5.1)
--- NOTE | 2018-11-03 16:32 | Discharge Summary ---
Date of Service November 03, 2018 11/02/18 08:40 OR Room: [facility] Anesthesia Type: General p Laparoscopic Cholecystectomy Surgeon: Shon Mancera Admission HPI Per Admitting Provider The patient is a 42-year-old female with a past medical history including anxiety with depression, Zack fundoplication, tobacco abuse, bipolar disorder, and migraines, who presents to the emergency department with acute onset of severe right upper quadrant abdominal pain that has persisted throughout the day. She has not had this pain in the past. It is accompanied by nausea without vomiting. She has not had any questionable food intake. She underwent imaging studies in the emergency department with ultrasound the right upper quadrant showing fatty liver, and suggesting acute cholecystitis, with suggestion of HIDA scan if necessary for confirmation. She reports that her mother did require a cholecystectomy. Patient was seen by Dr. Mancera from general surgery in the emergency department, who has tentative plans for laparoscopic cholecystectomy with possible cholangiogram later on in the day. Principal Diagnosis Acute cholecystitis status post cholecystectomy Discharge Exam The patient appeared well nourished and normally developed. Vital signs as documented. Head exam is unremarkable. normocephalic, atraumatic Neck is without jugular venous distension, thyromegaly, or lymphademopathy Lungs are clear to auscultation and percussion. Cardiac exam reveals Rhythm is regular. First and second heart sounds normal. Abdominal exam reveals normal bowel sounds, she is soft there is some minor redness around her most superior midline laparoscopic port site but this likely may be irritation as there is Dermabond at that site Extremities are nonedematous and both pedal pulses are present Neurologic exam is A&Ox3, no focal deficits, strength is equal bilateral Psychologically seems neither anxious or depressed Skin is warm Dry except for as mentioned above Discharge Data Allergies Allergy/AdvReac Type Severity Reaction Status Date / Time pantoprazole Allergy Severe Swelling Verified 11/01/18 23:24 of throat lamotrigine AdvReac Mild Rash Verified 11/01/18 23:24 Consultations 11/02/18 01:51 ED Decision to Admit Stat 11/02/18 03:40 Consult Case Management - Discharge Planning Routine Consult General Surgery Routine 11/02/18 04:20 Consult General Surgery Routine Procedures Performed Operation Date: 11/02/18 08:40 Actual Procedures p Laparoscopic Cholecystectomy(Not Applicable) - Shon Mancera, DO, FACS Ordered Studies 11/01/18 23:33 US abdomen limited Urgent 11/02/18 00:33 CT abd pelvis oral and IV con Urgent Hospital Course (1) Acute calculous cholecystitis: Consult general surgery Dr. Mancera - s/p cholecystectomy 11/02, patient doing well discuss with surgery production tool engineer with her to continue antibiotics they said no but does have pain medicine and follow-up with Dr. Mancera as an outpatient. (2) Bipolar disorder: Bipolar disorder/anxiety/depression/migraines-sugars have been stable Continue divalproex extended release 1250 mg p.o. at bedtime, duloxetine 30 mg p.o. twice daily, Inderal LA 120 mg every morning, and prazosin 5 mg p.o. at bedtime. (3) Migraines: See above (4) Hypercalcemia: Calcium is actually low, given the wide discrepancy between the 2 levels would recommend outpatient repeat testing with her primary care provider Parathyroid hormone level was low (5) Hyperglycemia: A1c 5.6 (6) GERD (gastroesophageal reflux disease): GERD/history of Zack fundoplication- Continue outpatient antiacid suppression medications (7) History of Zack fundoplication: See above (8) Tobacco abuse: Smoking cessation counseling given Albuterol-nebulizer every 2 hours as needed. (9) Anxiety: See above (10) Depression: See above Total Time Total Time Spent Total Time Spent (In Minutes): greater than 30 minutes were required to prepare discharge Discharge Plan Discharge Items Patient Disposition: Home - Self-Care Reason For Visit: ACUTE CHOLECYSTITIS Discharge Diagnosis: cholecystitis, acute cholecystectomy Discharge Goals: Decrease discomfort, Diagnostic testing and Improve disease control Activity: Per 'Additional Instructions' section Lifting: No more than 10 pounds Bathing: No limitations Driving/Machine Use: Resume 3 days after discharge Non-emergency contact: Surgeon Call non-emergency contact if: you have any medication questions, your pain is not controlled, you have a fever, your temperature is above 101.5 and your wound has increased redness Follow-up/Referrals: Raul Pham MD [Primary Care Provider] - Shon Mancera DO, FACS [Physician] - (Call to make an appt in 2 weeks) Diet: Regular Addtl Provider Instructions: please follow up with general surgery Post-Surgical ~Discharge Instructions Activity Recommendations: - lifting limitation: (10 pounds for 2 weeks), - exercise/sex/sports limit: (nonstrenuous for 2 weeks), - driving or machine use limit: (none for 1 week), - Shower/bathe limit: (may shower beginning tomorrow) Diet: - Resume previous diet SPECIAL CARE INSTRUCTIONS: - May shower in 24 hours. Let water run over area and pat dry. - Leave steri strips on for one week. - Call the surgeon's office with any questions or concerns - - (ex. temperature higher than 101 degrees F, excessive bleeding or pain). MEDICATIONS: - Resume previous medications unless instructed otherwise by your surgeon. - Ibuprofen 600 mg every 6 hours with food - Percocet 1 every 4 hours, as needed for pain FOLLOW UP VISIT: - If not already scheduled, please call the office to schedule a two week follow-up appointment. Office number Prescriptions: New oxycodone-acetaminophen [Percocet] 5-325 mg tablet 1 - 2 tab PO Q4H PRN (Reason: pain) Qty: 15 RF: 0 Continued calcium carbonate [Calcium 500] 500 mg calcium (1,250 mg) Tablet 1,000 mg PO QAM RF: 0 duloxetine [Cymbalta] 30 mg Capsule,Delayed Release(Dr/Ec) 30 mg PO BID RF: 0 ondansetron 4 mg tablet,disintegrating 4 mg PO Q6H PRN (Reason: nausea and vomiting) Qty: 10 RF: 0 meclizine 25 mg tablet 25 mg PO TID PRN (Reason: dizziness) Qty: 20 RF: 0 prazosin 5 mg capsule 5 mg PO HS RF: 0 divalproex 250 mg tablet extended release 24 hr 1,250 mg PO HS RF: 0 amitriptyline 25 mg tablet 25 mg PO HS RF: 0 ferrous sulfate 325 mg (65 mg iron) Tablet,Delayed Release (Dr/Ec) 325 mg PO QAM RF: 0 propranolol 120 mg capsule,extended release 24 hr 120 mg PO QAM RF: 0 Discontinued acetaminophen [Tylenol Extra Strength] 500 mg Tablet 500 mg PO Q6H PRN (Reason: Pain) RF: 0 amoxicillin-pot clavulanate [Augmentin] 875-125 mg Tablet 1 tab PO Q12H RF: 0 Stand-Alone Forms: Call Back Authorization, [facility] Discharge Orders: Discharge Order (Routine); Ordered 11/03/18 Ordered By: Tyrell Arnold Admission Data Admit Date/Time: 11/02/18 02:46 Attending Provider: Tyrell Arnold Admit Provider: Juliano Araya Primary Care Provider: Raul Pham Other Providers: Shon Mancera ; Juliano Araya Service: Surgical Services Other Interventions: Discharge Summary Assessment (RN) Last Done: 11/03/18 10:54 Pending Studies at Discharge: Yes DC Date/Time DO NOT enter until pt leaves facility: 11/03/18 11:38
[2018-11-07 23:49] LABS: Vitamin D3,1,25 14 pg/mL
== END 2018-11-03 11:38 | disposition home or self-care (01) | DRG 419 ==
LOC: ED 22:59 → SUATTDRO 11-02 02:46 → 3N 11-02 02:46

== ENCOUNTER 2018-12-21 19:46 | Observation (INO) ==
[2018-12-21] MEDS ORDERED: PROCHLORPERAZINE 5 MG/ML 2 ML VIAL IV STA (20:19)
[2018-12-21] MEDS ORDERED: MoRPHine SULFATE 4 MG/ML 1 ML CARP\\VIAL IV STA (20:19)
[2018-12-21] MEDS ORDERED: SODIUM CHLORIDE 0.9% 1000ML 1,000 ML IV SCH (20:30)
[2018-12-21 20:50] LABS: Basophils # (auto) 0.02 K/uL (0-0.2); Basophils % (auto) 0.2 %; Eosinophils # (auto) 0.06 K/uL (0-0.5); Eosinophils % (auto) 0.5 %; Hematocrit (blood only) 37.9 % (37-47); Hemoglobin 13.2 g/dL (12.0-16.0); Immature Granulocytes # (auto) 0.11 K/uL (0.00-0.02); Immature Granulocytes % (auto) 0.8 %; Lymphocytes # (auto) 2.05 K/uL (1.2-3.4); Lymphocytes % (auto) 15.5 %; Mean Corpuscular Hemoglobin 32.7 pg (25-34); Mean Corpuscular Hgb Conc 34.8 g/dL (32-36); Mean Corpuscular Volume 93.8 fL (80-100); Mean Platelet Volume 10.4 fL (7.4-10.4); Monocytes # (auto) 0.78 K/uL (0.11-0.59); Monocytes % (auto) 5.9 %; Neutrophils # (auto) 10.18 K/uL (1.4-6.5); Neutrophils % (auto) 77.1 %; Platelet Count 278 K/uL (130-400); RDW Coefficient of Variation 13.5 % (11.5-14.5); RDW Standard Deviation 46.4 fL (36.4-46.3); Red Blood Count 4.04 M/uL (4.2-5.4)
[2018-12-21 21:04] LABS: Pregnancy Test, Serum Negative (Negative)
[2018-12-21 21:10] LABS: Albumin Level 3.7 gm/dl (3.4-5.0); BUN Creatinine Ratio 14.4 (10-20); Calcium 8.9 mg/dl (8.5-10.1); Creatinine Clr Calc Pharmacy 96.6 ml/min; Est GFR (African American) 93.2; Est GFR (Non-African American) 80.5; Potassium 3.6 mmol/L (3.5-5.1)
[2018-12-21 21:12] LABS: Albumin Globulin Ratio 1.1 (0.9-2); Bilirubin,Total 0.4 mg/dl (0.2-1); Globulin 3.3 gm/dl (2.5-4.0)
[2018-12-21] MEDS ORDERED: KETOROLAC 30 MG/ML VIAL IV ONE (21:14)
[2018-12-21] MEDS ORDERED: DiphenhydrAMINE HCL 50 MG/ML VIAL IV STA (21:14)
--- NOTE | 2018-12-21 23:08 | Emergency Department Note ---
Entered by Matilda Farrar acting as a scribe for Oscar Campbell MD History of Present Illness General Chief complaint: Headache Stated complaint: MIGRAINE Time Seen by Provider: 12/21/18 20:12 Source: patient History of Present Illness Onset (ago): day(s) (2) Location: head Pain Consistency: + other (worsening) Maximum Pain Intensity: 10 Quality: + other (migraine) Associated symptoms: + denies other symptoms (numbness, weakness, urinary symptoms) and + nausea/vomiting (positive nausea, negative vomiting) The patient is a 43 year old female who presents to the Emergency Room with complaints of a worsening migraine beginning two days ago. The patient states she has a significant history of migraines and has been in the ER twice this week already for migraines. The patient reports that she is given medication whi le in the hospital lowering her pain to a 2/10, but the pain returns as soon as the medication wears off. She notes that the pain starts behind her eyes and radiates to the back of her head. The patient notes that she has nausea, but no vomiting. She denies any numbness, weakness, urinary symptoms, and the chance of . She states that her triggers include lack of sleep and certain smells. The patient states that she has been taking propanol and Maxalt for many years, but it no longer provides any pain relief. She states that she has been having frequent migraines for the past several months, but this week is the worst that it has ever been. She notes that she has only been sleeping 3 to 4 hours per night. She reports that she saw Dr. Taylor yesterday and was given prednisone which she has been taking, but it has not helped with pain relief. Home Medications Home Medications Medication Instructions Recorded Confirmed Type ferrous sulfate 325 mg PO QAM 10/05/18 12/21/18 History calcium carbonate 600 mg calcium 600 mg PO BID tab 11/28/18 12/21/18 History (1,500 mg) tablet lorazepam 0.5 mg tablet 0.5 mg PO BID PRN tab 11/28/18 12/21/18 History rizatriptan 10 mg disintegrating 10 mg PO DAILY PRN #9 tab 11/28/18 12/21/18 History tablet celecoxib 100 mg capsule 100 mg PO BID #60 cap 08/12/19 08/30/19 Rx ondansetron HCl 8 mg tablet 8 mg PO TID PRN #60 tab 12/03/18 12/21/18 Rx propranolol ER 120 mg capsule,24 120 mg PO QAM #30 cap 12/03/18 12/21/18 Rx hr,extended release albuterol sulfate [ProAir HFA] 2 puff INHALATION Q6H PRN 12/16/18 12/21/18 History ranitidine HCl [Acid Control 150 mg PO QAM 12/16/18 12/21/18 History (ranitidine)] trazodone 150 mg PO HS 12/16/18 12/21/18 History lithium carbonate 600 mg PO HS 12/19/18 12/21/18 History prednisone 20 mg tablet 20 mg PO .COMPLEX #30 tab 12/20/18 12/21/18 Rx Allergies Allergy/AdvReac Type Severity Reaction Status Date / Time pantoprazole Allergy Severe Swelling Verified 12/21/18 20:31 of throat lamotrigine AdvReac Mild Rash Verified 12/21/18 20:31 Past Med/Surg History Medical History PTSD (post-traumatic stress disorder) Acute cholecystitis (Resolved) Acute calculous cholecystitis (Resolved) 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 degree AV block Valproic acid toxicity (Resolved) Bipolar disorder (Chronic) Migraines (Chronic) Recovering alcoholic (Chronic) Migraine (Inactive) Surgical History H/O lumbosacral spine surgery (Chronic) History of ankle surgery History of back surgery History of section Family History Mother Brain tumor Hypertension Breast cancer Father Depression with anxiety Prostate cancer Unknown Breast cancer Myocardial infarction Prostate cancer Other No significant family history Social History Preferred Language: Yemeni Communication Ability: Effective Proof Tester Required: No Beliefs That Will Affect Care: None marital status: Current Living Situation: Spouse current occupational status: employed 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 and A total of 10 systems reviewed and were otherwise negative Physical Exam Vital Signs Vital Signs - 24 hr 12/21/18 19:48 12/21/18 21:25 12/21/18 23:04 Temperature 36.7 C Temperature Source Oral Sepsis Recent Fever Within 48 Hours No Sepsis Action Taken by Nursing No Action Required Pulse Rate 90 Pulse Rate [Left Finger] 63 60 Pulse Rhythm Regular Pulse Strength Normal Respiratory Rate 20 20 16 Respiratory Effort / Characteristics Non-Labored Spontaneous Non-Labored Spontaneous Respiratory Depth Normal Normal Respiratory Pattern Regular Blood Pressure 148/87 H Blood Pressure [Left Arm] 143/88 H 130/85 Blood Pressure Mean 107 Blood Pressure Mean [Left Arm] 106 100 Blood Pressure Position Sitting Pulse Oximetry 99 93 97 Oxygen Delivery Method Room Air Room Air Oxygen Flow Rate 12/22/18 00:08 12/22/18 01:00 12/22/18 01:19 Temperature Temperature Source Sepsis Recent Fever Within 48 Hours Sepsis Action Taken by Nursing Pulse Rate Pulse Rate [Left Finger] 61 67 Pulse Rhythm Pulse Strength Respiratory Rate 16 16 Respiratory Effort / Characteristics Non-Labored Spontaneous Respiratory Depth Normal Respiratory Pattern Blood Pressure Blood Pressure [Left Arm] 145/90 H 154/104 H Blood Pressure Mean Blood Pressure Mean [Left Arm] 108 120 Blood Pressure Position Pulse Oximetry 98 99 Oxygen Delivery Method Room Air Nasal Cannula Nasal Cannula Oxygen Flow Rate 2 2 General: Uncomfortable appearing middle aged female in no acute distress. Sitti ng in room with lights out. HEENT: Normal cephalic atraumatic. Pupils are equal round and reactive to light. Extraocular movements are intact. Oropharynx is pink with moist mucous membranes. No swelling of the mouth lips or tongue. Neck: Supple with a midline trachea. No meningeal signs or stiffness, no JVD or bruits. No Stridor. Chest: Clear to auscultation bilaterally. No wheezes or rhonchi. No increased work of breathing. Heart: regular rate and rhythm. Abdomen: Soft nontender, nondistended without rebound guarding or rigidity. Extremities: No cyanosis clubbing or edema. No calf tenderness or asymmetry Spine/Back. Non tender to palpation. No CVA tenderness Skin: Good turgor without rashes. Neurologic exam: Cranial nerves two through 12 are intact. Motor and sensation are intact and symmetrical throughout. Course 2015: Past medical records reviewed. The patient was evaluated in room A03. A complete history and physical exam was performed. 2213: After reevaluation, the patient is having abdominal pain after taking the medication. She was given Benadryl and Tordal. 2315: Upon reevaluation, I discussed findings and results with the patient. She verbalized agreement of the treatment plan. I spoke with Dr. [facility] and she agrees to take the patient. The patient will be evaluated for further management and care. Administered Medications Discontinued Medications Diphenhydramine HCl (Benadryl) 25 mg IV NOW STA Stop: 12/21/18 21:15 Last Admin: 12/21/18 21:24 Dose: 25 mg Documented by: [id number] Sodium Chloride (Nss 1000ml) 1,000 mls @ 999 mls/hr IV .Q1H1M MARCY Stop: 12/21/18 21:30 Last Infusion: 12/21/18 23:05 Dose: 0 mls/hr Documented by: [id number] Admin: 12/21/18 20:49 Dose: 999 mls/hr Documented by: [id number] Ketorolac Tromethamine (Toradol) 30 mg IV NOW ONE Stop: 12/21/18 21:15 Last Admin: 12/21/18 21:23 Dose: 30 mg Documented by: [id number] Morphine Sulfate (Morphine Sulfate) 4 mg IV NOW STA Stop: 12/21/18 20:20 Last Admin: 12/21/18 20:49 Dose: 4 mg Documented by: [id number] Prochlorperazine (Compazine) 10 mg IV NOW STA Stop: 12/21/18 20:20 Last Admin: 12/21/18 20:49 Dose: 10 mg Documented by: [id number] Sumatriptan Succinate (Imitrex) 6 mg SQ NOW STA Stop: 12/21/18 23:56 Last Admin: 12/22/18 00:07 Dose: 6 mg Documented by: [id number] Medical Decision Making Differential Diagnosis tension headache, migraine, intercranial process, electrolyte and metabolic abnormalities Medical Records Attestation: I reviewed the patient's medical records. Home Medications Current Medication List: was personally reviewed by me Laboratory Data Attestation: I reviewed the patient's lab results. Result diagrams: 12/21/18 20:41 12/21/18 20:41 Lab Results 12/21/18 12/21/18 12/21/18 Range/Units 20:41 20:41 20:41 WBC 13.20 H (4.8-10.8) K/uL RBC 4.04 L (4.2-5.4) M/uL Hgb 13.2 (12.0-16.0) g/dL Hct 37.9 (37-47) % MCV 93.8 (80-100) fL MCH 32.7 (25-34) pg MCHC 34.8 (32-36) g/dL RDW Std Deviation 46.4 H (36.4-46.3) fL RDW Coeff of Georgette 13.5 (11.5-14.5) % Plt Count 278 (130-400) K/uL MPV 10.4 (7.4-10.4) fL Immature Gran % (Auto) 0.8 % Neut % (Auto) 77.1 % Lymph % (Auto) 15.5 % Kane % (Auto) 5.9 % Eos % (Auto) 0.5 % Baso % (Auto) 0.2 % Immature Gran # (Auto) 0.11 H (0.00-0.02) K/uL Neut # (Auto) 10.18 H (1.4-6.5) K/uL Lymph # (Auto) 2.05 (1.2-3.4) K/uL Kane # (Auto) 0.78 H (0.11-0.59) K/uL Eos # (Auto) 0.06 (0-0.5) K/uL Baso # (Auto) 0.02 (0-0.2) K/uL Sodium 138 (136-145) mmol/L Potassium 3.6 (3.5-5.1) mmol/L Chloride 106 (98-107) mmol/L Carbon Dioxide 25 (21-32) mmol/L Anion Gap 7.0 (3-11) BUN 13 (7-18) mg/dl Creatinine 0.87 (0.6-1.2) mg/dl Est Cr Clr Drug Dosing 96.6 ml/min Est GFR ( Amer) 93.2 Est GFR (Non-Af Amer) 80.5 BUN/Creatinine Ratio 14.4 (10-20) Glucose 186 H (70-99) mg/dl Calcium 8.9 (8.5-10.1) mg/dl Total Bilirubin 0.4 (0.2-1) mg/dl AST 37 (15-37) U/L ALT 228 H (12-78) U/L Alkaline Phosphatase 131 H (45-117) U/L Total Protein 7.0 (6.4-8.2) gm/dl Albumin 3.7 (3.4-5.0) gm/dl Globulin 3.3 (2.5-4.0) gm/dl Albumin/Globulin Ratio 1.1 (0.9-2) HCG, Qual Negative (Negative) ECG Data Attestation: I personally reviewed and interpreted this ECG as follows: Indication: chest pain Rate (beats per minute): 67 Rhythm: sinus rhythm Findings: no acute ischemic change and no ectopy Comparison ECG Date: from (11/01/2018) Change: the following changes noted (incomplete RBBB no longer present) Blood Pressure Blood Pressure Findings: Elevated blood pressure Blood Pressure Disposition: further management by hospitalist DENNIS Narrative This patient comes in as described above. She was placed in room C9. She is here for treatment and evaluation of headache. She has a long history of migraines have been getting worse over last couple months. This is her third visit this week. She saw her yesterday as well. Last time she was here she had a CTA of the head which did show a 2 mm aneurysm, I think this is an inci dental finding and not causing her symptoms. She has a normal neurologic exam. She has nothing to suggest meningitis or encephalitis. IV access was established, blood work was obtained, her white count is mildly elevated most likely from being on steroids. She has no acute electrolyte or metabolic abnormalities. She was initially given morphine 4 mgs IV and Zofran 4 mgs IV. She started having epigastric pain after this and was EKG was obtained which was unremarkable troponin was negative. She has no other signs to suggest allergic reaction- no hives or airway swelling. She was given Benadryl IV as well as IV Toradol. She seems to be much more comfortable still says she has a headache and she does not feel she can go home given the fact that she is on intractable migraine this is third visit, I do think is reasonable to keep her for further inpatient treatment and evaluation. I have consulted the [facility] hospitalist Dr. Romano for this. Impression & Plan Acute intractable headache, Migraines, Bipolar disorder, Acute epigastric pain, Nausea & vomiting Discharge Plan Visit Data Chief Complaint: Headache Stated Complaint: MIGRAINE ED Provider: Oscar Campbell Discharge Problem: Acute intractable headache, Migraines, Bipolar disorder, Acute epigastric pain, Nausea & vomiting Patient Disposition: Being Evaluated by Hospitalist Discharge Instructions Interventions: ED Discharge Assessment Last Done: 12/22/18 01:31 The scribe's documentation has been prepared under my direction and personally reviewed by me in its entirety. I confirm that the note above accurately reflects all work, treatment, procedures, and medical decision making performed by me.
[2018-12-21] MEDS ORDERED: SUMAtriptan succinate 6 MG/0.5 ML VIAL SQ STA (23:55)
--- NOTE | 2018-12-22 | History & Physical Report ---
Date of Service December 21, 2018 Assessment & Plan (1) Status migrainosus: Ms. Kwok is a 43 year old female with a past medical history of migraines, bipolar disorder, PTSD, and alcohol abuse who presents to the emergency department due to a 5-day history of a migraine. ED course: 1 L normal saline bolus, 25 mg IV Benadryl, 30 mg IV Toradol, 10 mg IV Compazine, 4 mg IV morphine sulfate -Admit to med/surg -This is the patient's third presentation to the emergency department due to un relenting migraines. She states they have been occurring more frequently for the past few months. 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 Unlikely that this is related to her headaches -No red flag symptoms to suggest intracranial hemorrhage or meningitis -Trial of 6 mg subcutaneous sumatriptan, however this did not improve her pain -10 mg IV Decadron ordered -1L LR ordered for maintenance fluids given patient's poor PO intake -Neurology consult ordered, appreciate assistance with this patient -Continue home propranolol GERD -Continue home ranitidine Bipolar disorder and PTSD -Continue home lithium, trazodone and as needed Ativan History of alcohol abuse -Patient states that she has quit drinking CODE STATUS: Full DVT prophylaxis: Low risk, encourage ambulation Disposition: Admit to med/surg (2) Brain aneurysm: (3) GERD (gastroesophageal reflux disease): (4) Bipolar disorder: (5) Tobacco abuse: History of Present Illness Chief Complaint: Migraine Primary Care Provider: Taiwo Pham MD Ms. Kwok is a 43 year old female with a past medical history of migraines, bipolar disorder, PTSD, and alcohol abuse who presents to the emergency department due to a 5-day history of a migraine. She states that the headache is bilateral, 12 out of 10 in severity, and has been present for the past 5 days. This is her third presentation to the hospital. She states in the ED, they typically administer a GI cocktail to treat her migraine, which reduces the pain, however never fully goes away, and then returns once the medications were off. She states this is feels similar to her previous migraines, however is not resolving. She endorses associated nausea, sweating, neck pain, blurry vision, photophobia, sensitivity to loud sounds, and trouble sleeping, which she states are all typical for her migraine symptoms. She denies weakness, trouble with speech, gait or coordination. She does endorse dizziness due to the pain. Of note, she saw her primary care provider on 12/20 who started her on a prednisone taper for her headaches. She states her headache is similar to her past migraines, however they have never lasted this long. She states her typical triggers are not eating regularly or lack of sleep. She is unsure which foods trigger her migraines. She denies an association with her menstrual cycle. She denies any recent head trauma or falls. She denies any recent tick bites. With regards to her history of migraines, she began having them 15 years ago. She typically has a migraine once a month, however endorses more frequent migraines over the summer, stating that have been occurring almost every week. She takes propranolol as a prophylaxis, and uses Maxalt when she has a migraine. She stated that this used to work well for her in the past. Past medical history: Bipolar disorder, PTSD, history of alcohol abuse, migraines Past surgical history: Cholecystectomy, left sided ankle fusion, , lumbosacral spine surgery Medications: Crary, propranolol, Celebrex, trazodone, Zantac, iron and calcium, PRN Maxalt Allergies: Pantoprazole and lamotrigine Social history: No longer drinks alcohol, or uses recreational drugs. Smokes 4 cigarettes a day. Family history: Mother with brain tumor, breast cancer and hypertension. Father with depression and prostate cancer. Allergies Allergy/AdvReac Type Severity Reaction Status Date / Time pantoprazole Allergy Severe Swelling Verified 12/21/18 20:31 of throat lamotrigine AdvReac Mild Rash Verified 12/21/18 20:31 Home Medications Home Medications Medication Instructions Recorded Confirmed Type ferrous sulfate 325 mg PO QAM 10/05/18 12/21/18 History calcium carbonate 600 mg calcium 600 mg PO BID tab 11/28/18 12/21/18 History (1,500 mg) tablet lorazepam 0.5 mg tablet 0.5 mg PO BID PRN tab 11/28/18 12/21/18 History rizatriptan 10 mg disintegrating 10 mg PO DAILY PRN #9 tab 11/28/18 12/21/18 History tablet celecoxib 100 mg capsule 100 mg PO BID #60 cap 12/03/18 12/21/18 Rx ondansetron HCl 8 mg tablet 8 mg PO TID PRN #60 tab 12/03/18 12/21/18 Rx propranolol ER 120 mg capsule,24 120 mg PO QAM #30 cap 12/03/18 12/21/18 Rx hr,extended release albuterol sulfate [ProAir HFA] 2 puff INHALATION Q6H PRN 12/16/18 12/21/18 History ranitidine HCl [Acid Control 150 mg PO QAM 12/16/18 12/21/18 History (ranitidine)] trazodone 150 mg PO HS 12/16/18 12/21/18 History lithium carbonate 600 mg PO HS 12/19/18 12/21/18 History prednisone 20 mg tablet 20 mg PO .COMPLEX #30 tab 12/20/18 12/21/18 Rx Past Med/Surg History Medical History PTSD (post-traumatic stress disorder) Acute cholecystitis (Resolved) Acute calculous cholecystitis (Resolved) 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 degree AV block Valproic acid toxicity (Resolved) Bipolar disorder (Chronic) Migraines (Chronic) Recovering alcoholic (Chronic) Migraine (Inactive) Surgical History H/O lumbosacral spine surgery (Chronic) History of ankle surgery History of back surgery History of section Family History Mother Brain tumor Hypertension Breast cancer Father Depression with anxiety Prostate cancer Unknown Breast cancer Myocardial infarction Prostate cancer Other No significant family history Social History Preferred Language: Tajik Communication Ability: Effective Fish Icer Required: No Beliefs That Will Affect Care: None marital status: Current Living Situation: Spouse current occupational status: employed 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, [employer]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 Safe at Home: Yes Smoking Status: Never smoker Tobacco Type: cigarettes ; Cigarettes Per Day: 5 ; Second Hand Exposure: No ; Hx Alcohol Use: No Hx Substance Use: No Review of Systems Constitutional: + sweats and + fatigue; no fever and no chills Eyes: + photophobia Blurry vision Respiratory: no cough and no dyspnea Cardiovascular: no chest pain, no palpitations, no syncope and no edema Gastrointestinal: + nausea and + diarrhea/loose stools (Loose stools since gallbladder removal); no abdominal pain and no vomiting Neurologic: + dizziness and + headache(s); no gait abnormality, no falls, no localized weakness, no abnormal speech, no confusion and no memory loss Physical Exam Constitutional: WD/WN, vitals as above Laying down in bed, with the lights dimmed Eyes: PERRL, conjunctivae normal, anicteric sclerae ENMT: external ear and nose normal, oropharynx normal Respiratory: normal respiratory effort, lungs clear to auscultation Cardiovascular: RRR, no murmur, no edema Gastrointestinal (Abdomen): normal bowel sounds, soft, nontender, no hepatosplenomegaly Skin: no rashes, warm and dry Neurologic: Cranial nerves II to XII grossly intact, 5/5 power in upper and lower extremities Results & Data Vital Signs (Past 12 Hours) Vital Signs Temp Pulse Pulse Resp BP BP Pulse Ox 12/21/18 23:04 60 16 130/85 97 12/21/18 21:25 63 20 143/88 H 93 12/21/18 19:48 36.7 C 90 20 148/87 H 99 Supervising Physician Co-Signing Physician Notes Patient seen and examined, chart reviewed, case discussed with Dr. Fernandez and I agree with her assessment and plan as documented above. Briefly patient is a 43-year-old female with history of migraines on propranolol prophylaxis, bipolar/PTSD and alcohol abuse presenting with 5-day history of migraine. This is her third time to the ER with same complaint. Multiple agents tried in the emergency room for headache relief to include IV fluids, Benadryl, Toradol, Compazine and morphine as well as a dose of Imitrex with no relief. Patient states that this particular headache is similar to her prior migraines although more intense and longer lasting than before. On physical exam she is mildly hypertensive at 154/104, otherwise hemodynamically stable No neurologic deficits noted Labs and images reviewed Assessment/plan: -Admit to medical floor -Administer 10 mg of Decadron -Fluid resuscitation -Oxygen for comfort -Continue propranolol -Neurology consultation for migraine management. Appreciate assistance PG Care Time/CCT Total # of Minutes Spent Total Time Spent with Patient: Total time spent is greater than 50% in coord ination of care (as documented) at patient's floor/unit and/or counseling patient: Resident Activity Tracking Resident Involvement: Resident Care Provided Care Provided: Adult [facility] Medicine (1) Bipolar disorder Active/Remission status: remission status unspecified Qualified Code(s): F31.9 - Bipolar disorder, unspecified
[2018-12-22] MEDS ORDERED: LACTATED RINGER'S 1,000 ML IV SCH (01:44)
[2018-12-22] MEDS ORDERED: ONDANSETRON 8 MG TABLET PO PRN (01:44)
[2018-12-22] MEDS ORDERED: DEXAMETHASONE SOD INJ 4 MG/ML VIAL IV STA (01:44)
[2018-12-22] MEDS ORDERED: LORazepam 0.5 MG TAB PO PRN (01:44)
[2018-12-22] MEDS ORDERED: DEXAMETHASONE SOD PHOSPHATE 10 MG in SYRINGE 0 ML IV ONE (02:30)
[2018-12-22] MEDS: ACETAMINOPHEN 325 MG TAB PO PRN ×2 (08:20→19:49)
[2018-12-22] MEDS: CELECOXIB 100 MG CAP PO SCH ×2 (08:21→20:50)
[2018-12-22] MEDS ORDERED: PROPRANOLOL HCL 60 MG LA CAP PO SCH (09:00)
[2018-12-22] MEDS ORDERED: RIZATRIPTAN BENZOATE 10 MG TAB PO STA (11:39)
[2018-12-22] MEDS: PROPRANOLOL HCL 20 MG TAB PO SCH ×2 (12:27→19:45)
[2018-12-22] MEDS: MAGNESIUM OXIDE 400 MG TAB PO SCH ×2 (14:17→20:49)
[2018-12-22] MEDS ORDERED: LITHIUM CARBONATE 300 MG TAB PO SCH (21:00)
[2018-12-22] MEDS ORDERED: TRAZODONE HCL 50 MG TAB PO SCH (21:00)
[2018-12-22] MEDS ORDERED: KETOROLAC 30 MG/ML VIAL IV ONE (21:06)
[2018-12-22] MEDS ORDERED: DiphenhydrAMINE HCL 50 MG/ML VIAL IV STA (21:06)
[2018-12-22] MEDS ORDERED: PROCHLORPERAZINE 10 MG in SYRINGE 8 ML IV ONE (21:30)
--- NOTE | 2018-12-22 23:49 | Communication Note ---
Date of Service: December 22, 2018 Patient admitted in the AM of December 22. Patient has worsening migraines. Patient appears to have improved with steroids. But headaches are returning. Will increase propranolol to 160 mg PO Daily. Will recommend high dose of riboflavin as an outpatient and magnesium as well. Anticipate discharge in AM. Patient may require additional dose of prednisone in AM. Spent 35 minutes of additional time with patient. Case was discussed with Neurology.
[2018-12-23] MEDS: CELECOXIB 100 MG CAP PO SCH (08:13)
[2018-12-23] MEDS: MAGNESIUM OXIDE 400 MG TAB PO SCH (08:13)
[2018-12-23] MEDS ORDERED: PROPRANOLOL HCL LA 80 MG CAPCR PO SCH (09:00)
[2018-12-23] MEDS ORDERED: predniSONE 20 MG TAB PO STA (11:27)
--- NOTE | 2019-01-02 21:37 | Discharge Summary ---
Date of Service December 23, 2018 Admission HPI Per Admitting Provider Ms. Kwok is a 43 year old female with a past medical history of migraines, bipolar disorder, PTSD, and alcohol abuse who presents to the emergency department due to a 5-day history of a migraine. She states that the headache is bilateral, 12 out of 10 in severity, and has been present for the past 5 days. This is her third presentation to the hospital. She states in the ED, they typically administer a GI cocktail to treat her migraine, which reduces the pain, however never fully goes away, and then returns once the medications were off. She states this is feels similar to her previous migraines, however is not resolving. She endorses associated nausea, sweating, neck pain, blurry vision, photophobia, sensitivity to loud sounds, and trouble sleeping, which she states are all typical for her migraine symptoms. She denies weakness, trouble with speech, gait or coordination. She does endorse dizziness due to the pain. Of note, she saw her primary care provider on 12/20 who started her on a prednisone taper for her headaches. She states her headache is similar to her past migraines, however they have never lasted this long. She states her typical triggers are not eating regularly or lack of sleep. She is unsure which foods trigger her migraines. She denies an association with her menstrual cycle. She denies any recent head trauma or falls. She denies any recent tick bites. With regards to her history of migraines, she began having them 15 years ago. She typically has a migraine once a month, however endorses more frequent migraines over the summer, stating that have been occurring almost every week. She takes propranolol as a prophylaxis, and uses Maxalt when she has a migraine. She stated that this used to work well for her in the past. Past medical history: Bipolar disorder, PTSD, history of alcohol abuse, migraines Past surgical history: Cholecystectomy, left sided ankle fusion, , lumbosacral spine surgery Medications: [place], propranolol, Celebrex, trazodone, Zantac, iron and calcium, PRN Maxalt Allergies: Pantoprazole and lamotrigine Social history: No longer drinks alcohol, or uses recreational drugs. Smokes 4 cigarettes a day. Family history: Mother with brain tumor, breast cancer and hypertension. Father with depression and prostate cancer. Principal Diagnosis migraine Discharge Exam Constitutional: WD/WN, vitals as above Eyes: PERRL, conjunctivae normal, anicteric sclerae ENMT: external ear and nose normal, oropharynx normal Respiratory: normal respiratory effort, lungs clear to auscultation Cardiovascular: RRR, no murmur, no edema Gastrointestinal (Abdomen): normal bowel sounds, soft, nontender, no hepatosplenomegaly Skin: no rashes, warm and dry Neurologic: Cranial nerves II to XII grossly intact, 5/5 power in upper and lower extremities Discharge Data Allergies Allergy/AdvReac Type Severity Reaction Status Date / Time pantoprazole Allergy Severe Swelling Verified 12/26/18 11:03 of throat lamotrigine AdvReac Mild Rash Verified 12/26/18 11:03 Consultations 12/21/18 22:38 ED Decision to Admit Stat Hospital Course (1) Status migrainosus: Ms. Kwok is a 43 year old female with a past medical history of migraines, bipolar disorder, PTSD, and alcohol abuse who presents to the emergency department due to a 5-day history of a migraine. ED course: 1 L normal saline bolus, 25 mg IV Benadryl, 30 mg IV Toradol, 10 mg IV Compazine, 4 mg IV morphine sulfate -Admit to med/surg -This is the patient's third presentation to the emergency department due to unrelenting migraines. She states they have been occurring more frequently for the past few months. 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 Unlikely that this is related to her headaches -No red flag symptoms to suggest intracranial hemorrhage or meningitis -Trial of 6 mg subcutaneous sumatriptan, however this did not improve her pain -10 mg IV Decadron ordered -1L LR ordered for maintenance fluids given patient's poor PO intake -Neurology consult ordered, appreciate assistance with this patient -Continue home propranolol On day of discharge: Neuro consult was cancelled. D/W patient. She felt improvement. Will place steroid taper, increase propranolol and try magnesium. Patient will f/u with neuro as an outpatient in 3 days. GERD -Continue home ranitidine Bipolar disorder and PTSD -Continue home lithium, trazodone and as needed Ativan History of alcohol abuse -Patient states that she has quit drinking (2) Brain aneurysm: (3) GERD (gastroesophageal reflux disease): (4) Bipolar disorder: (5) Tobacco abuse: Total Time Total Time Spent Total Time Spent (In Minutes): 32 Total Time Includes: Examination of the Patient, Discharge Planning and Medication Reconciliation Discharge Plan Discharge Items Patient Disposition: Home - Self-Care Reason For Visit: MIGRAINE Activity: Resume your previous activity Non-emergency contact: Primary Care Provider Follow-up/Referrals: Raul Pham MD [Primary Care Provider] - Add Fire Chief'S Aide Provider Instructions: Take riboflavin (once a day) and magnesium (twice a day). This will help prevent headaches. Will recommend holding celebrex and to use toradol in the evening. Resume your steroid taper tomorrow. I also increased your propranolol to 160 mg po daily. This should help carry you over to monday. Stand-Alone Forms: My [facility] Medications and DC Order Prescriptions: New magnesium oxide 400 mg (241.3 mg magnesium) Tablet 400 mg PO BID Qty: 60 RF: 0 riboflavin (vitamin B2) 400 mg tablet 400 mg PO HS Qty: 30 RF: 0 propranolol 160 mg capsule,extended release 24 hr 160 mg PO DAILY Qty: 30 RF: 0 Continued rizatriptan [Maxalt-[employer]] 10 mg tablet,disintegrating 10 mg PO DAILY PRN (Reason: Migraine Headache) Qty: 9 RF: 0 lorazepam [Ativan] 0.5 mg tablet 0.5 mg PO BID PRN (Reason: anxiety) RF: 0 calcium carbonate 600 mg calcium (1,500 mg) tablet 600 mg PO BID RF: 0 trazodone 50 mg tablet 150 mg PO HS RF: 0 albuterol sulfate [ProAir HFA] 90 mcg/actuation HFA aerosol inhaler 2 puff inhalation Q6H PRN (Reason: bronchitis) RF: 0 ranitidine HCl [Acid Control (ranitidine)] 150 mg tablet 150 mg PO QAM RF: 0 lithium carbonate 600 mg capsule 600 mg PO HS RF: 0 ferrous sulfate 325 mg (65 mg iron) Tablet,Delayed Release (Dr/Ec) 325 mg PO QAM RF: 0 Discontinued celecoxib 100 mg capsule 100 mg PO BID Qty: 60 RF: 5 propranolol [Inderal LA] 120 mg capsule,extended release 24 hr 120 mg PO QAM Qty: 30 RF: 5 No Action Emgality Pen 120 mg/mL pen injector 240 mg SQ ONCE 30 Days Qty: 2 RF: 0 sumatriptan succinate 6 mg/0.5 mL pen injector 6 mg SQ .COMPLEX 30 Days Qty: 2 RF: 5 ondansetron HCl 4 mg tablet 4 mg PO TID PRN (Reason: nausea and vomiting) 30 Days Qty: 60 RF: 1 Discharge Orders: Discharge Order (Routine); Ordered 12/23/18 Ordered By: Deuce Stearsn Admission Data Admit Date/Time: 12/22/18 01:03 Attending Provider: Deuce Stearns Admit Provider: Brianna Fernandez Primary Care Provider: Raul Pham Other Providers: Jenni Romano Other Interventions: Discharge Summary Assessment (RN) Last Done: 12/23/18 14:15 DC Date/Time DO NOT enter until pt leaves facility: 12/23/18 14:30
== END 2018-12-23 14:30 | disposition home or self-care (01) ==
LOC: ED 19:46 → 4W 19:46 → SUATTDRO 12-22 01:03 → 4W 12-22 01:31
DX: Z79.899 Other long term (current) drug therapy; R11.2 Nausea with vomiting, unspecified; G43.919 Migraine, unspecified, intractable, without status migrainosus; Z88.8 Allergy status to other drugs, medicaments and biological substances; F31.9 Bipolar disorder, unspecified; R10.13 Epigastric pain